=== PATIENT | male | born 1960 | race Caucasian/White ===

== ENCOUNTER 2017-03-28 06:05 | Inpatient (IN) | payer BC ==
[2017-03-20 17:13] VITALS: BMI 30.8
--- NOTE | 2017-03-27 11:49 | HP ---
Satellite [facility] - Chief Complaint Chief Complaint: left hip pain - Past Medical History Allergies/Adverse Reactions: Allergies Allergy/AdvReac Type Severity Reaction Status Date / Time No Known Allergies Allergy Verified 03/20/17 17:16 - Current Medications Current Medications: Home Medications Medication Instructions Recorded Cholecalciferol (Vitamin D3) 5,000 unit PO DAILY 03/20/17 [Vitamin D3] Diltiazem [Cardizem -] 30 mg PO QID 03/20/17 Gabapentin 600 mg PO TID 03/20/17 Lipase/Protease/Amylase [Creon Dr 1 each PO TID 03/20/17 36,000 Units Capsule] Losartan Potassium [Cozaar] 25 mg PO DAILY 03/20/17 Omeprazole 20 mg PO DAILY 03/20/17 Solifenacin Succinate [Vesicare -] 5 mg PO DAILY 03/20/17 Tamsulosin HCl [Flomax] 1 tab PO DAILY 03/20/17 Satellite Physical Exam - Physical Examination General Appearance: Well Nourished, Well Developed, Alert & Oriented x3 ENT: Clear Lung: Normal air movement Heart: Regular rate & rhythm Extremities: Other (left hip- + ttp, decr room, nvi xrays show severe left hip djd) Neurological: Intact, Alert, Oriented Satellite Impression/Plan - Impression/Plan Impression: left hip djd Operative Procedure: left laurita thr Date to be Performed: 03/28/17
[2017-03-28] MEDS ORDERED: CEFAZOLIN 2 GM in DEXTROSE 5%-WATER - 50 ML IVPB ONE (06:20)
[2017-03-28] MEDS ORDERED: TRANEXAMIC ACID 1000 MG/10 ML VIAL IVPUSH ONE (06:20)
[2017-03-28] MEDS ORDERED: GABAPENTIN 300 MG CAPSULE (FP) ONE (06:28)
[2017-03-28] MEDS ORDERED: CELECOXIB 200 MG CAPSULE ONE (06:28)
[2017-03-28] MEDS ORDERED: oxyCODONE HCL 10 MG SUSTAINED ACTING TABLET ONE (06:28)
[2017-03-28] MEDS: oxyCODONE HCL 10 MG SUSTAINED ACTING TABLET PO ONE (06:30)
[2017-03-28] MEDS: CELECOXIB 200 MG CAPSULE PO ONE (06:30)
[2017-03-28] MEDS: GABAPENTIN 300 MG CAPSULE (FP) PO ONE (06:30)
[2017-03-28] MEDS ORDERED: BUPIVACAINE HCL/PF (5 MG/ML) 30 ML VIAL IJ ONE (07:15)
[2017-03-28] MEDS ORDERED: MIDAZOLAM HCL 2 MG/2 ML SINGLE DOSE VIAL ONE (07:15)
[2017-03-28] MEDS ORDERED: DEXAMETHASONE SOD PHOSPHATE/PF 10 MG/ML SDV ONE (07:15)
[2017-03-28] MEDS ORDERED: EPINEPHrine/PF 1 MG/1 ML (1:1,000) AMPULE ONE (07:16)
[2017-03-28] MEDS ORDERED: VANCOMYCIN 1,000 MG VIAL (RESTRICTED TO ID ONLY) ONE (07:17)
[2017-03-28] MEDS ORDERED: ceFAZolin SODIUM 1 GM VIAL ONE (07:17)
[2017-03-28] MEDS ORDERED: SUCCINYLCHOLINE CHLORIDE 200 MG/10 ML VIAL ONE (07:23)
[2017-03-28] MEDS ORDERED: PROPOFOL 20 ML ONE ×4 (07:23)
[2017-03-28] MEDS ORDERED: BUPIVACAINE HCL/PF 0.5% (5MG/ML) 10 ML VIAL ONE (07:31)
[2017-03-28] MEDS ORDERED: TRANEXAMIC ACID 1000 MG/10 ML VIAL ONE (08:11)
[2017-03-28] MEDS ORDERED: ONDANSETRON 4 MG/2 ML VIAL IVPB PRN (09:48)
[2017-03-28] MEDS ORDERED: MAGNESIUM HYDROX 2400MG/30ML ORAL SUSPENSION 30 ML CUP PO PRN (09:48)
[2017-03-28] MEDS ORDERED: MAG HYDROX/AL HYDROX/SIMETH 30 ML UNIT-DOSE CUP PO PRN (09:48)
--- NOTE | 2017-03-28 09:54 | OP ---
Operative Note - Note: Operative Date: 03/28/17 (zeus) Pre-Operative Diagnosis: left hip djd Operation: left laurita thr Post-Operative Diagnosis: Same as Pre-op Surgeon: Casey Alfaro Rn Cardiac Cath: Roney Rahman) Anesthesiologist/VITREO RETINAL SURGEON: Lionel Salinas Anesthesia: Spinal, Local Specimens Removed: femoral head Estimated Blood Loss (mls): 200 Operative Report Dictated: Yes
[2017-03-28] MEDS ORDERED: ELECTROLYTE-148 SOLN 1,000 ML IV SCH (10:00)
--- NOTE | 2017-03-28 10:24 | SPEC ---
DATE OF OPERATION: 03/28/2017 PREOPERATIVE DIAGNOSIS: Degenerative Joint Disease, Left Hip POSTOPERATIVE DIAGNOSIS: Degenerative Joint disease, Left Hip PROCEDURE: Left Total Hip Replacement with Robotic Arm Navigation Assistance (Makoplasty) SURGEON: Dr. Casey Alfaro COAL CONVEYOR OPERATOR: Dr. Roney Rahman and RACHEL Morales ANESTHESIA: Spinal and regional CLOSURE: Edwin total hip system with a No. 8 Accolade II femoral stem, a 36 ceramic femoral head, a 56 titanium Press-Fit acetabulum with a polyethylene with a 10-degree lip, No. 1 Vicryl for fascia, 0 and 2-0 subcutaneous, 3-0 Monocryl subcuticular with skin glue for skin, and 4-0 undyed Vicryl for pin sites. ESTIMATED BLOOD LOSS: Less Than 100 mL. COMPLICATIONS: None. CONDITION: To recovery room in stable condition. DESCRIPTION OF OPERATIVE PROCEDURE: The patient was taken to the operating room. Spinal anesthesia as well as sciatic block was administered by the anesthesiologist. The IV Kefzol and TXA were administered prophylactically prior to the case. The patient was placed in the lateral decubitus position with all prominences well-padded. An EKG pad was secured to the inferior pole of the patella for limb length calculations intraoperatively. The left hip area was prepped and draped in the usual sterile fashion. A 12.0-15.0 cm curved longitudinal incision over the posterolateral aspect of the greater trochanter was made. Hemostasis was achieved with Bovie cautery. Sharp dissection was carried down to the level of the fascia. The fascia was opened the entire length of the incision, spreading the gluteus merry fibers in the direction of their origin. A Charnley retractor was placed in this layer, and care was taken to be far away from the sciatic nerve. The short external rotators were detached off the insertion of the greater trochanter and peeled off the capsule. A posterior capsulectomy was then performed. A checkpoint was malleted into the greater trochanter. Three small stab incisions were done on the iliac crest. Through these stab incisions, threaded guide pins were drilled into the iliac crest. These pins were fastened to the Navigation array. The check point on the greater trochanter, and the EKG pad on the inferior pole of the patella were used to measure preoperative limb length and offset. The hip was then dislocated. The hip was osteotomized at the appropriate level as directed by the preoperative template. Anterior and posterior retractors were placed around the acetabulum. Circumferential labrum was excised. A checkpoint was malleted into the acetabulum superiorly. The acetabulum was then registered with the Navigation device with multiple sites within the acetabulum and around the rim of the acetabulum. I t was then confirmed popping the blue bubbles, confirming ideal position and confirmation of adequate registration with the Navigation device. Using a 48 reamer, which was decided preoperatively on the preoperative template, the robotic arm was brought into the field and was used to ream the acetabulum down to the appropriate depth with the appropriate orientation and inversion applied. After reaming, a good hemispherical bleeding surface was encountered in the acetabulum. A SAAD shell of the appropriate size was then malleted into place achieving excellent fit. Confirmation of the appropriate orientation and inversion was confirmed using the probe, and assuring that the acetabular cup was placed in the ideal position as templated preoperatively. A real liner was then clipped into place with a 10 degree lip in the posterior-superior quadrant. Anterior and posterior osteophytes were removed using osteotome. Next, our attention was directed to the femur. The proximal femur was opened with a box chisel, rat-tail, anchovy and serial reamers. This was done until the appropriate reamer achieved good fit and fill of the proximal femur. A trial reduction with the appropriate neck and head, as again measured from our preoperative template, was performed. Limb lengths were confirmed both visually and using the Navigation device, again measuring the inferior pole of the patella and the checkpoint of the greater trochanter. This confirmed ideal position of the femoral component, lengths and offset. The trial components were removed. The real component was malleted into place. The head was cold-welded to the Charnley and the hip was reduced. Again, the hip was found to have equal limb lengths as described previously. The hip was also taken through a range of motion and found to be stable in external rotation and extension, was stable in marked flexion, stable in adduction and internal rotation, and had a positive hang test and negative telescoping. The hip was irrigated with copious amounts of irrigation. Hemostasis was achieved. Vancomycin powder was sprinkled into the joint. A second dose of TXA was administered. The fascia was closed with No. 1 Vicryl interrupted suture, 0 and 2-0 for subcutaneous, and 3-0 Monocryl subcuticular for skin with skin glue. This was followed by an Aquacel dressing. The patient was flipped into the supine position. Bilateral SCDs and an abduction pillow were applied. X-rays showed good position of the components. The patient was awakened from anesthesia and transferred to the recovery room in stable condition. COMPLICATIONS: None. ESTIMATED BLOOD LOSS: Less than 100 mL. Paulina [id number]
[2017-03-28] MEDS ORDERED: PROMETHAZINE HCL 25 MG/1 ML VIAL IVPUSH PRN (10:29)
[2017-03-28] MEDS ORDERED: ONDANSETRON 4 MG/2 ML VIAL IVPUSH PRN (10:56)
[2017-03-28] MEDS ORDERED: oxyCODONE HCL 5 MG TABLET PO PRN (10:57)
[2017-03-28] MEDS ORDERED: ACETAMINOPHEN 325 MG TABLET (FP) PO SCH (12:00)
[2017-03-28] MEDS ORDERED: PT OWN MED DRAWER 7, Y5N ONE ×4 (14:25→22:48)
[2017-03-28] MEDS: LIPASE/PROTEASE/AMYLASE 36,000 UNIT CAPSULE PO SCH ×2 (14:26→21:58)
[2017-03-28] MEDS: dilTIAZem HCL 30 MG TABLET (FP) PO SCH ×3 (14:26→21:56)
[2017-03-28] MEDS: CEFAZOLIN 2 GM/D5W 50 ML IVPB SCH ×2 (16:42→23:58)
[2017-03-28] MEDS: ACETAMINOPHEN 325 MG TABLET (FP) PO SCH ×2 (18:23→22:00)
[2017-03-28] MEDS ORDERED: REFRIGERATED ANITBIOTICS ONE (20:04)
[2017-03-28] MEDS: oxyCODONE HCL 5 MG TABLET PO PRN (21:55)
[2017-03-28] MEDS: oxyCODONE HCL 10 MG SUSTAINED ACTING TABLET PO SCH (21:55)
[2017-03-28] MEDS: SENNOSIDES/DOCUSATE COMBO (SENNA PLUS) TABLET (UD) PO SCH ×2 (21:56→22:00)
[2017-03-28] MEDS: TAMSULOSIN HCL 0.4 MG CAP.ER.24H (FP) PO SCH (21:57)
[2017-03-29] MEDS ORDERED: PT OWN MED DRAWER 7, Y5N ONE ×3 (05:31→21:56)
[2017-03-29] MEDS: ACETAMINOPHEN 325 MG TABLET (FP) PO SCH ×5 (05:35→23:37)
[2017-03-29] MEDS: oxyCODONE HCL 5 MG TABLET PO PRN ×4 (05:36→21:57)
[2017-03-29] MEDS: LIPASE/PROTEASE/AMYLASE 36,000 UNIT CAPSULE PO SCH ×3 (05:36→21:57)
--- NOTE | 2017-03-29 08:02 | PN ---
Progress Note (short form) - Note Progress Note: Ortho Pt seen and examined s/p left laurita thr pod #1 Selected Entries 03/29/17 06:20 Temperature 98.1 F Pulse Rate 79 Respiratory 18 Rate Blood Pressure 126/73 Laboratory Tests 03/29/17 07:00 WBC Pending Hgb Pending Hct Pending Plt Count Pending dressing c/d/i, calf soft, nt nvi a/p PT hip precautions dvt ppx pain control d/c home tomorrow if stable
[2017-03-29 08:07] LABS: MCH 30.8 pg (25.7-33.7); MCHC 33.9 g/dl (32.0-35.9); MEAN PLT VOLUME 9.9 fl (7.5-11.1); PLATELET COUNT 249 K/MM3 (134-434); RDW 12.8 % (11.9-15.9); WHITE BLOOD COUNT 17.6 K/mm3 (4.0-10.8)
[2017-03-29] MEDS: ASPIRIN 325 MG TABLET PO SCH (08:30)
[2017-03-29] MEDS: dilTIAZem HCL 30 MG TABLET (FP) PO SCH ×5 (09:12→21:57)
[2017-03-29] MEDS: PANTOPRAZOLE 40 MG TABLET (FP) PO SCH ×2 (09:16→12:43)
[2017-03-29] MEDS: LOSARTAN POTASSIUM 25 MG TABLET PO SCH ×2 (09:16→12:43)
[2017-03-29] MEDS: MULTIVITAMINS (DAILY MVI) TABLET (FP) PO SCH ×2 (09:16→12:43)
[2017-03-29] MEDS: SOLIFENACIN SUCCINATE 5 MG TAB (FP) PO SCH ×2 (09:17→12:43)
[2017-03-29] MEDS: oxyCODONE HCL 10 MG SUSTAINED ACTING TABLET PO SCH ×2 (09:18→21:58)
[2017-03-29] MEDS: SENNOSIDES/DOCUSATE COMBO (SENNA PLUS) TABLET (UD) PO SCH ×2 (10:00→21:58)
--- NOTE | 2017-03-29 10:36 | PN ---
Progress Note, Physician Chief Complaint: Pt. pain controlled, ambulating and voiding, no anesthesia complaints. - Current Medication List Current Medications: Active Medications Acetaminophen (Tylenol -) 650 mg PO Q6H ON LICENSE OF [facility] Stop: 03/31/17 11:59 Last Admin: 03/29/17 05:35 Dose: 650 mg Al Hydroxide/Mg Hydroxide (Mylanta Oral Suspension -) 30 ml PO Q4H PRN PRN Reason: DYSPEPSIA Aspirin (Asa -) 325 mg PO DAILY@0800 ON LICENSE OF [facility] Last Admin: 03/29/17 08:30 Dose: 325 mg Diltiazem HCl (Cardizem -) 30 mg PO QID ON LICENSE OF [facility] Last Admin: 03/29/17 09:15 Dose: 30 mg Fentanyl (Sublimaze Injection -) 50 mcg IVPUSH [id number] PRN PRN Reason: PAIN Stop: 03/31/17 10:30 Parenteral Electrolytes (Plasma-Lyte 148 -) 1,000 mls @ 125 mls/hr IV ASDIR ON LICENSE OF [facility] Losartan Potassium (Cozaar -) 25 mg PO DAILY ON LICENSE OF [facility] Last Admin: 03/29/17 09:16 Dose: 25 mg Magnesium Hydroxide (Milk Of Magnesia -) 30 ml PO PRN PRN PRN Reason: CONSTIPATION Multivitamins/Minerals/Vitamin C (Tab-A-Vit -) 1 tab PO DAILY ON LICENSE OF [facility] Last Admin: 03/29/17 09:16 Dose: 1 tab Ondansetron HCl (Zofran Injection) 4 mg IVPB Q6H PRN PRN Reason: NAUSEA Oxycodone HCl (Oxycontin -) 10 mg PO BID ON LICENSE OF [facility] Stop: 03/31/17 10:29 Last Admin: 03/29/17 09:18 Dose: 10 mg Oxycodone HCl (Roxicodone -) 5 mg PO Q3H PRN PRN Reason: PAIN LEVEL 1-5 Last Admin: 03/29/17 09:17 Dose: 5 mg Oxycodone HCl (Roxicodone -) 10 mg PO Q3H PRN PRN Reason: PAIN LEVEL 6-10 Last Admin: 03/28/17 14:32 Dose: 10 mg Pancrelipase (Creon Dr 36,000 Units Capsule) 1 cap PO TID ON LICENSE OF [facility] Last Admin: 03/29/17 05:36 Dose: 1 cap Pantoprazole Sodium (Protonix -) 40 mg PO DAILY ON LICENSE OF [facility] Last Admin: 03/29/17 09:16 Dose: 40 mg Senna/Docusate Sodium (Pericolace -) 2 tablet PO BID ON LICENSE OF [facility] Last Admin: 03/28/17 22:00 Dose: 2 tablet Solifenacin (Vesicare -) 5 mg PO DAILY ON LICENSE OF [facility] Last Admin: 03/29/17 09:17 Dose: 5 mg Tamsulosin HCl (Flomax -) 0.4 mg PO HS ON LICENSE OF [facility] Last Admin: 03/28/17 21:57 Dose: 0.4 mg - Objective Vital Signs: Vital Signs Temperature 98.1 F 03/29/17 06:20 Pulse Rate 79 03/29/17 06:20 Respiratory Rate 18 03/29/17 06:20 Blood Pressure 126/73 03/29/17 06:20 O2 Sat by Pulse Oximetry (%) 94 L 03/28/17 11:19 Constitutional: Yes: Well Nourished, No Distress, Calm Musculoskeletal: Yes: WNL Neurological: Yes: WNL, Alert, Oriented ...Motor Strength: WNL Labs: CBC, BMP 03/29/17 07:00 Assessment/Plan POD#1 s/p left total hip replacement under spinal. Doing well. D/C from anesthesia care.
[2017-03-29] MEDS: ELECTROLYTE-148 SOLN 1,000 ML IV SCH ×2 (11:18→12:44)
[2017-03-29] MEDS: oxyCODONE HCL 10 MG SUSTAINED ACTING TABLET PO ONE (12:42)
[2017-03-29] MEDS: CELECOXIB 200 MG CAPSULE PO ONE (12:42)
[2017-03-29] MEDS: GABAPENTIN 300 MG CAPSULE (FP) PO ONE (12:42)
[2017-03-29] MEDS: TAMSULOSIN HCL 0.4 MG CAP.ER.24H (FP) PO SCH (21:58)
[2017-03-30 06:42] VITALS: PULSE 89
[2017-03-30] MEDS: ACETAMINOPHEN 325 MG TABLET (FP) PO SCH ×2 (06:43→10:45)
[2017-03-30] MEDS: LIPASE/PROTEASE/AMYLASE 36,000 UNIT CAPSULE PO SCH (06:44)
[2017-03-30] MEDS: oxyCODONE HCL 5 MG TABLET PO PRN ×2 (06:44→08:08)
[2017-03-30] MEDS: ASPIRIN 325 MG TABLET PO SCH (08:07)
--- NOTE | 2017-03-30 08:24 | PN ---
Progress Note (short form) - Note Progress Note: Ortho Pt seen and examined s/p left laurita thr pod #2 Selected Entries 03/30/17 06:00 Temperature 98.9 F Pulse Rate 89 Respiratory 19 Rate Blood Pressure 102/73 Laboratory Tests 03/29/17 07:00 WBC 17.6 H D Hgb 13.9 Hct 41.0 Plt Count 249 dressing c/d/i, calf soft, nt nvi a/p PT hip precautions dvt ppx pain control d/c home today f/u in 1 week
--- NOTE | 2017-03-30 08:25 | DS ---
Physical Examination Vital Signs: Vital Signs Temperature 98.9 F 03/30/17 06:00 Pulse Rate 89 03/30/17 06:00 Respiratory Rate 19 03/30/17 06:00 Blood Pressure 102/73 03/30/17 06:00 O2 Sat by Pulse Oximetry (%) 93 L 03/30/17 06:00 Discharge Summary Reason For Visit: OSTEOARTHRITIS Procedures: Principal: s/p left laurita thr Hospital Course: admitted for elective left laurita thr, uneventful post-op, stable for d/c Condition: Good - Instructions Diet, Activity, Other Instructions: Post-op Instructions-Total Hip Replacement Call the office for a follow-up appointment in 1 week - [phone] Aspirin 325mg daily for 6 weeks. Pain medication was sent into your pharmacy. Apply Graduated Compression Stockings (TEDs) to both lower extremities- remove daily for hygiene ONLY Apply Sequential Compression Device (SCDs) to both Lower extremities remove for PT and hygiene ONLY Apply cold packs to affected area for 15 minutes every 2 hours. Physical Therapist will come to your home for the first 5 days. You will be set up with outpatient PT at your first post-operative visit. Patient may ambulate as tolerated-encourage self care (at least every 2-3 hours while awake) with walker or cane Maintain Aquacel (waterproof) dressing to operative wound (will be removed by surgeon at first office visit) Shower with Aquacel dressing in place-if Aquacel integrity compromised, remove and apply dry sterile dressing and notify Orthopedist. DO NOT SHOWER unless Orthopedists approves without Aquacel dressing CONTACT THE OFFICE FOR ANY CHANGE IN YOUR CONDITION (for example-fever greater than 102 degrees,excessive bleeding from operative site, purulent drainage, severe swelling or pain) GO TO THE EMERGENCY ROOM IF THERE IS A MEDICAL EMERGENCY Hip Precautions: * Keep a rolled towel under affected heel while in bed or chair (to keep knee in extension) * Dependent upon approach: * Posterior - do not cross legs; do not sit on low chairs or toilets. * If you have any questions, please do not hesitate to call the office - . Referrals: Roeny Rahman MD [Staff Physician] - Disposition: VNS/HOME HEALTH CARE - Home Medications Comprehensive Discharge Medication List: Ambulatory Orders Cholecalciferol (Vitamin D3) [Vitamin D3] 5,000 unit PO DAILY 03/20/17 Diltiazem [Cardizem -] 30 mg PO QID 03/20/17 Gabapentin 600 mg PO TID 03/20/17 Lipase/Protease/Amylase [Jamee Levi 36,000 Units Capsule] 1 each PO TID 03/20/17 Losartan Potassium [Cozaar] 25 mg PO DAILY 03/20/17 Omeprazole 20 mg PO DAILY 03/20/17 Solifenacin Succinate [Vesicare -] 5 mg PO DAILY 03/20/17 Tamsulosin HCl [Flomax] 1 tab PO HS 03/20/17 Aspirin [ASA -] 325 mg PO DAILY@0800 tablet 03/28/17 Oxycodone HCl/Acetaminophen [Percocet 5-325 mg Tablet -] 1 - 2 tab PO Q6H #50 tab MDD 8 03/28/17
[2017-03-30 09:12] VITALS: BP 116/58; TEMP 97.9
[2017-03-30] MEDS: LOSARTAN POTASSIUM 25 MG TABLET PO SCH (09:12)
[2017-03-30] MEDS: dilTIAZem HCL 30 MG TABLET (FP) PO SCH (09:12)
[2017-03-30] MEDS: MULTIVITAMINS (DAILY MVI) TABLET (FP) PO SCH (09:13)
[2017-03-30] MEDS: oxyCODONE HCL 10 MG SUSTAINED ACTING TABLET PO SCH (09:13)
[2017-03-30] MEDS: PANTOPRAZOLE 40 MG TABLET (FP) PO SCH (09:13)
[2017-03-30] MEDS: SOLIFENACIN SUCCINATE 5 MG TAB (FP) PO SCH (09:13)
[2017-03-30] MEDS: SENNOSIDES/DOCUSATE COMBO (SENNA PLUS) TABLET (UD) PO SCH (09:13)
[2017-03-30 09:33] LABS: MEAN PLT VOLUME 10.1 fl (7.5-11.1); PLATELET COUNT 231 K/MM3 (134-434)
[2017-03-30 09:36] LABS: MCH 31.2 pg (25.7-33.7); MCHC 33.9 g/dl (32.0-35.9); MEAN CELL VOLUME 92.1 fl (80-96); RDW 13.3 % (11.9-15.9); WHITE BLOOD COUNT 12.8 K/mm3 (4.0-10.0)
[2017-03-30] MEDS: ELECTROLYTE-148 SOLN 1,000 ML IV SCH (10:44)
--- NOTE | 2017-04-03 10:55 | PATH ---
Surgical Pathology Report Patient Name: LITZY GUTIÉRREZ Med. Rec. #: [id number] /Age/Gender: 1960 (Age: 57) / M Account: [id number] Location: [facility] MED-SURG Taken: 03/28/2017 Received: 03/29/2017 Reported: 04/03/2017 Physicians: Roney Rahman M.D. Specimen(s) Received LEFT FEMORAL HEAD Clinical History Left hip osteoarthritis Final Diagnosis FEMORAL HEAD, LEFT, TOTAL HIP REPLACEMENT: DEGENERATIVE JOINT DISEASE. Electronically Signed Theodora Singleton M.D. Gross Description Received in formalin, labeled "left femoral head," is a 5.3 x 5.2 x 4.6 cm. femoral head with a 1.3 cm in length portion of femoral neck attached. The margin of resection is smooth. There is a 5.0 cm in greatest dimension area of eburnation present. The remaining articular surface is graham-yellow and focally granular. The underlying trabecular bone is yellow and hard. A wine sales representative section is submitted in one cassette, following decalcification. 03/30/201703/30/2017
== END 2017-03-30 11:00 | disposition home health service (06) | DRG 470 ==
LOC: FM/S 06:05
PROVIDERS: ADMIT Orthopaedic Surgery; ATTEND Orthopaedic Surgery
PROC: 8E0W0CZ Robotic Assisted Procedure of Trunk Region, Open Approach (ICD-10-PCS; 2017-03-28)
PROC: 0SRB03A Replacement of Left Hip Joint with Ceramic Synthetic Substitute, Uncemented, Open Approach (ICD-10-PCS; principal; 2017-03-28 08:32)
DX: M16.12 Unilateral primary osteoarthritis, left hip (principal)
CPT/HCPCS: 36415; 73502-TC-LT; 85027; 88304-TC; 88311-TC; 94010; 94760; 97116-GP; 97162-GP

== ENCOUNTER 2018-05-30 06:14 | Inpatient (IN) | payer BC ==
--- NOTE | 2018-05-29 13:06 | HP ---
DATE OF ADMISSION: 05/30/2018 Patient to be admitted to the [facility] Operating Room tomorrow morning. HISTORY: This is a 58-year-old male admitted through the surgical service for reduction and repair of a recurrent ventral/incisional abdominal wall hernia. The patient has had the hernia for quite some time. He was initially thought to have intraabdominal pathology while living in [place], a couple of years back and underwent a mini laparotomy. No intraabdominal pathology was identified at that time. However, he was told that he had a hernia preoperatively and that his hernia was repaired when his mini laparotomy was closed. It is not certain at that time whether mesh was or was not placed. Nonetheless, the patient has gone on to develop an obvious recurrent/incisional abdominal wall hernia. He is quite symptomatic. He has decided at this juncture to move in the direction of definitive management. PAST MEDICAL HISTORY: Significant for atrial fibrillation, hypertension, hypercholesterolemia, and arthritis. PAST SURGICAL HISTORY: Significant for mini laparotomy and hernia repair of the abdominal wall in February 2016. He has also had hip replacement in March 2017. ALLERGIES: None known. REGULAR MEDICATIONS: Aspirin, atorvastatin, diltiazem, ezetimibe, gabapentin, losartan, Mesalamine, omeprazole, and VESIcare. SOCIAL HISTORY: Negative tobacco. The patient states that he did smoke rather regularly up until March of this year. Patient also states that he was a relatively heavy drinker in the past but has not had alcohol now for quite some time. FAMILY HISTORY: Father secondary to heart disease and underlying diabetes. Mother age 89, in good health. REVIEW OF SYSTEMS: Nil. PHYSICAL EXAMINATION: Abdomen: Patient examined in the erect and supine position, mildly recurrent hernia involving the central portion of the abdomen in the upper midline. It is intimately associated with the overlying scar from prior intervention. In the supine position, the hernia is partially but not entirely reducible. Patient does have a very large diastasis recti stemming from the xiphoid process to the umbilicus. IMPRESSION: Recurrent, complex, chronically incarcerated, ventral/incisional abdominal wall hernia. PLAN: Reduction and repair of chronic, recurrent, chronically incarcerated, ventral/incisional abdominal wall hernia with mesh and component separation. Indications, alternatives, possible complications reviewed. Consent obtained. Issues relating to mesh reviewed with patient. Patient seen preoperatively by Dr. Louis Jimenez. Please refer to those notes for those medical details. COOPER TAN M.D. GIO/[id number]
[2018-05-30] MEDS ORDERED: TAMSULOSIN HCL 0.4 MG CAP ONE (06:36)
[2018-05-30 06:57] VITALS: BMI 31.4
[2018-05-30] MEDS ORDERED: LIDOCAINE HCL/PF 2% SDV 5ML VIAL ONE (07:12)
[2018-05-30] MEDS ORDERED: ROCURONIUM BROMIDE 50 MG/5 ML VIAL ONE ×2 (07:12→08:25)
[2018-05-30] MEDS ORDERED: ONDANSETRON 4 MG/2 ML VIAL ONE (07:12)
[2018-05-30] MEDS ORDERED: DEXAMETHASONE SOD PHOSPHATE 4 MG/1 ML VIAL ONE (07:12)
[2018-05-30] MEDS ORDERED: fentaNYL CITRATE 250 MCG/5 ML VIAL ONE (07:12)
[2018-05-30] MEDS ORDERED: DEXAMETHASONE SOD PHOSPHATE/PF 10 MG/ML SDV ONE (07:28)
[2018-05-30] MEDS ORDERED: MIDAZOLAM HCL 2 MG/2 ML SINGLE DOSE VIAL ONE (07:28)
[2018-05-30] MEDS ORDERED: BUPIVACAINE HCL/PF (5 MG/ML) 30 ML VIAL IJ ONE (07:29)
[2018-05-30] MEDS ORDERED: ceFAZolin SODIUM 1 GM VIAL ONE (08:13)
[2018-05-30] MEDS ORDERED: ePHEDrine SULFATE 50 MG/1 ML AMPULE ONE (09:12)
[2018-05-30] MEDS ORDERED: ONDANSETRON 4 MG/2 ML VIAL IVPUSH PRN ×2 (09:23→11:24)
[2018-05-30] MEDS ORDERED: oxyCODONE HCL 5 MG TABLET PO PRN ×2 (09:23→14:35)
[2018-05-30] MEDS ORDERED: LACTATED RINGERS SOLUTION 1,000 ML IV SCH (09:30)
[2018-05-30] MEDS ORDERED: NEOSTIGMINE METHYLSULFATE 0.5 MG/ML - 10 ML MDV ONE (09:40)
[2018-05-30] MEDS ORDERED: GLYCOPYRROLATE 0.2 MG/1 ML VIAL ONE (09:40)
[2018-05-30] MEDS ORDERED: PROPOFOL 20 ML ONE (09:48)
--- NOTE | 2018-05-30 11:22 | OP ---
DATE OF OPERATION: 05/30/2018 PREOPERATIVE DIAGNOSIS: Recurrent complex chronically incarcerated ventral/incisional abdominal wall hernia. POSTOPERATIVE DIAGNOSIS: Recurrent complex chronically incarcerated ventral/incisional abdominal wall hernia. PROCEDURE: Open bilateral component separation repair of recurrent complex chronically incarcerated ventral/incisional abdominal wall hernia with mesh. OPERATING SURGEON: Ej Solis MD SOCIAL MEDIA SPECIALIST: Jack Suárez MD ANESTHESIA: Elana Retana MD (general) HISTORY: This is a 58-year-old man who presents for repair of a complex recurrent abdominal wall hernia. Indications, alternatives, and possible complications reviewed. Consent was obtained. DESCRIPTION OF PROCEDURE: With the patient in the supine position, under general anesthesia, the abdomen was prepped and draped in the usual sterile fashion using chlorhexidine. A midline incision was made in the preexisting scar beginning above the umbilicus and extending below the umbilicus. The subcutaneous tissues were . The hernia sac was easily encountered and cleaned to the level of the fascial ring. The sac was opened and found to contain incarcerated omentum. Lysis of adhesions ensued, and the omentum was freed from the hernia ring and undersurface of the anterior abdominal wall and reduced. First directing our attention to the right side, the right posterior rectus sheath was from the overlying rectus muscle fibers, creating the retrorectus space. This dissection was carried inferiorly, laterally, and superiorly ultimately arriving at the juncture of the oblique and transversus muscles. The oblique muscles were then from the underlying transversus muscle at that level. The retrorectus space dissection was carried further laterally into that plane, and again, the dissection was extended inferiorly, laterally, and superiorly. Now directing out attention to the left side, the left posterior rectus sheath was from the overlying left rectus muscle fibers. The dissection again was carried out inferiorly, laterally, and superiorly arriving at the junction of the oblique and transversus muscles. Again, the oblique musculature was from the underlying transversus musculature. The plan of dissection of the retrorectus space was carried into this space, and again, the dissection was further accomplished inferiorly, laterally, and superiorly. Ultimately, the posterior midline was reapproximated using a 2-0 V-Loc suture, and the abdomen was closed. A composite mesh was then fashioned at the table by using a piece of Versatex mesh measuring 30 x 30 cm in size. A similar slightly smaller piece of OviTex mesh was sutured to the Versatex mesh using interrupted 3-0 Vicryl sutures creating the composite mesh. After the mesh was soaked, it was placed in the retrorectus space with the OviTex side down and the Versatex side up. The mesh was fashioned and filled the space at dissection. Ultimately, the mesh was fixed to the overlying musculature using counter palpation and AbsorbaTack. The wound was irrigated, irrigant retrieved. Adequate hemostasis was ensured. The anterior rectus fascia was then approximated using 0 PDS sutures beginning at each end of the wound, with the suture tied at the wound midpoint, leaving the mesh entirely in the retrorectus sheath. The subcutaneous tissues were irrigated and adequate hemostasis ensured. The midline was closed using metallic clips. Prior to closure, a Ruben-Polanco drain was placed in the subcutaneous space which exited through a separate stab wound in the right lower quadrant where the drain was tacked to the skin using 2-0 silk sutures. COUNTS: Needle, sponge, and instrument counts were correct ESTIMATED BLOOD LOSS: Minimal. SPECIMEN: None. IMPLANT: Mesh. DRAIN: One MATTY. The procedure was terminated. Paulina FREED/[id number] cc: Paulina Oconnor M.D. MTDVinayak
[2018-05-30] MEDS ORDERED: morphine CARPU-JECT 10 MG/1 ML DISP.SYRIN IVPB PRN (11:24)
[2018-05-30] MEDS ORDERED: D5-1/2NS+20 MEQ KCL - 20 MEQ/1,000 ML INFUS.BAG IV SCH (11:30)
[2018-05-30] MEDS: GABAPENTIN 300 MG CAPSULE (FP) PO SCH ×2 (13:32→22:12)
[2018-05-30] MEDS ORDERED: PATIENT'S OWN MEDICATION (NON-FORMULARY) (Gabapentin [Gabapentin] 600 MG) PO SCH (14:00)
[2018-05-30] MEDS ORDERED: ATORVASTATIN CA 20 MG TABLET (FP) PO SCH (22:00)
[2018-05-30] MEDS ORDERED: SOLIFENACIN SUCCINATE 5 MG TAB (FP) PO SCH (22:00)
[2018-05-30] MEDS ORDERED: PATIENT'S OWN MEDICATION (NON-FORMULARY) (Mesalamine [Mesalamine] 1.2 GM) PO SCH (22:00)
[2018-05-30] MEDS ORDERED: ASPIRIN COATED 81 MG TABLET.EC PO SCH (22:00)
[2018-05-30] MEDS ORDERED: EZETIMIBE 10 MG TABLET (FP) PO SCH (22:00)
[2018-05-30] MEDS ORDERED: LOSARTAN POTASSIUM 25 MG TABLET PO SCH (22:00)
[2018-05-30] MEDS ORDERED: metoPROLOL SUCCINATE 25 MG TAB.SR.24H (FP) PO SCH (22:00)
[2018-05-30] MEDS: oxyCODONE HCL 5 MG TABLET PO PRN (23:44)
[2018-05-31] MEDS: GABAPENTIN 300 MG CAPSULE (FP) PO SCH (06:18)
[2018-05-31] MEDS: oxyCODONE HCL 5 MG TABLET PO PRN ×2 (06:18→10:31)
[2018-05-31 06:51] VITALS: BP 103/59; PULSE 61; TEMP 98.2
--- NOTE | 2018-05-31 08:38 | DS ---
DATE OF ADMISSION: 05/30/2018 DATE OF DISCHARGE: 05/31/2018 ADMITTING DIAGNOSIS: Complex incisional hernia with preexisting hypertension and atrial fibrillation. DISCHARGE DIAGNOSIS: Complex incisional hernia with preexisting hypertension and atrial fibrillation. BRIEF HISTORY: This is a 58-year-old male who presented to [facility] for surgical management of a complex incisional hernia. He underwent repair of this hernia with mesh utilizing component separation and myofascial release. That was done on May 30. Please reference Dr. Ej Sharpe operative note for further details. Postoperatively, he did well. He is being discharged home today, May 31. He is tolerating a liquid diet. He is ambulating. He is voiding. His pain is well controlled with oral narcotics. He will go home with a new prescription for Percocet. He will continue his usual home medications of aspirin, Lipitor, Cardizem, Neurontin, mesalamine, metoprolol, and Vesicare. He will go home with a Ruben-Polanco drain. He will follow with Dr. Solis next week to be evaluated for drain removal. He will only sponge bathe while the drain is in. He is okay to walk, okay to climb stairs. He will stay on a light diet until he is having bowel movements which can be expected to take up to 5 days. He will not lift anything more than 20 pounds, and he will likely require 2 to 4 weeks off from work. At the time of his discharge, he is afebrile, his heart rate is 61, his blood pressure is 103/59, and he is ambulating and voiding. DO BREANN PIEDRA/[id number]
--- NOTE | 2018-05-31 09:49 | PN ---
Progress Note, Physician Chief Complaint: s/p ventral hernia repair under general anesthesia post op day one. History of Present Illness: general anesthesia, oral analgesia for post op pain control - Current Medication List Current Medications: Active Medications Aspirin (Ecotrin -) 81 mg PO [facility] Last Admin: 05/30/18 22:12 Dose: Not Given Atorvastatin Calcium (Lipitor -) 20 mg PO [facility] Last Admin: 05/30/18 22:15 Dose: 20 mg Diltiazem HCl (Cardizem Cd -) 120 mg PO [facility] Last Admin: 05/30/18 22:15 Dose: 120 mg Ezetimibe (Zetia -) 10 mg PO [facility] Last Admin: 05/30/18 22:15 Dose: 10 mg Enoxaparin Sodium (Lovenox -) 40 mg SQ DAILY [facility] Gabapentin (Neurontin -) 600 mg PO TID [facility] Last Admin: 05/31/18 06:18 Dose: 600 mg Lactated Ringer's (Lactated Ringers Solution) 1,000 mls @ 125 mls/hr IV ASDIR [facility] Potassium Chloride/Dextrose/Sod Cl (D5-1/2ns+20 Meq Kcl -) 20 meq in 1,000 mls @ 100 mls/hr IV ASDIR [facility] Last Admin: 05/30/18 11:30 Dose: 100 mls/hr Losartan Potassium (Cozaar -) 25 mg PO [facility] Last Admin: 05/30/18 22:15 Dose: 25 mg Metoprolol Succinate (Toprol Xl -) 25 mg PO [facility] Last Admin: 05/30/18 22:13 Dose: Not Given Morphine Sulfate (Morphine Injection -) 8 mg IVPB Q3H PRN PRN Reason: PAIN LEVEL 7 - 10 Last Admin: 05/30/18 13:31 Dose: 8 mg Non-Formulary Medication (Mesalamine [Mesalamine]) 1.2 gm PO [facility] Ondansetron HCl (Zofran Injection) 4 mg IVPUSH Q6H PRN PRN Reason: NAUSEA Oxycodone HCl (Roxicodone -) 7.5 mg PO Q4H PRN PRN Reason: PAIN LEVEL 4 - 6 Last Admin: 05/31/18 06:18 Dose: 7.5 mg Oxycodone HCl (Roxicodone -) 5 mg PO Q3H PRN PRN Reason: PAIN LEVEL 1-3 Pantoprazole Sodium (Protonix Iv) 40 mg IVPUSH DAILY [facility] Solifenacin (Vesicare -) 5 mg PO HS [facility] Last Admin: 05/30/18 22:14 Dose: 5 mg - Objective Vital Signs: Vital Signs Temperature 98.2 F 05/31/18 06:50 Pulse Rate 61 05/31/18 06:50 Respiratory Rate 18 05/31/18 06:50 Blood Pressure 103/59 L 05/31/18 06:50 O2 Sat by Pulse Oximetry (%) 94 L 05/31/18 07:30 Constitutional: Yes: Well Nourished Cardiovascular: Yes: WNL Respiratory: Yes: WNL Gastrointestinal: Yes: WNL Assessment/Plan No adverse effects of anesthetic, pain controlled, tolerating liquids, no nausea or vomiting, dept of anesthesia will sign off care at this time
[2018-05-31] MEDS ORDERED: PANTOPRAZOLE SODIUM 40 MG VIAL IVPUSH SCH (10:00)
[2018-05-31] MEDS ORDERED: ENOXAPARIN NA (PORCINE) 40 MG/0.4 ML DISP.SYRIN SQ SCH (10:00)
== END 2018-05-31 11:00 | disposition home or self-care (01) | DRG 355 ==
LOC: FASU 06:14 → FM/S 11:24 → UNDOADMIN 12:36 → FM/S 12:36
PROVIDERS: ADMIT Surgery; ATTEND Surgery
PROC: 0WUF0JZ Supplement Abdominal Wall with Synthetic Substitute, Open Approach (ICD-10-PCS; principal; 2018-05-30 08:19)
DX: K43.0 Incisional hernia with obstruction, without gangrene (principal); I10 Essential (primary) hypertension; I48.91 Unspecified atrial fibrillation
CPT/HCPCS: 94760

== ENCOUNTER 2018-06-14 17:20 | Inpatient (IN) | payer BC ==
[2018-06-14] MEDS ORDERED: SODIUM CHLORIDE 1,000 ML IV STA (17:31)
[2018-06-14] MEDS ORDERED: morphine CARPU-JECT 4 MG/1 ML DISP.SYRIN IVPUSH ONE (17:31)
[2018-06-14] MEDS ORDERED: ONDANSETRON 4 MG/2 ML VIAL IVPUSH ONE (17:31)
[2018-06-14] MEDS ORDERED: ONDANSETRON 4 MG/2 ML VIAL ONE (17:47)
[2018-06-14] MEDS ORDERED: morphine SULFATE 4 MG/ML VIAL ONE (17:47)
[2018-06-14 17:54] LABS: URINE APPEARANCE Clear; URINE BILIRUBIN Negative (NEGATIVE); URINE COLOR Yellow; URINE GLUCOSE (UA) Negative (NEGATIVE); URINE KETONE 1+ (NEGATIVE); URINE LEUK ESTERASE TRACE (NEGATIVE); URINE NITRITE Negative (NEGATIVE); URINE PROTEIN Trace (NEGATIVE); URINE UROBILINOGEN 0.2 (0.2-1.0)
--- NOTE | 2018-06-14 18:05 | PDOC ---
History of Present Illness - General Chief Complaint: Pain Stated Complaint: LEFT ABD PAIN Time Seen by Provider: 06/14/18 17:22 History Source: Patient Exam Limitations: No Limitations - History of Present Illness Initial Comments: 06/14/18 18:00 Patient is a 58M with history of HTN, HLD, hernia with sbo and repair two weeks ago, [place] here today complaining of sudden onset of left lower quadrant abdominal pain. He endorses nausea, vomiting and subjective fevers. Last bowel movement was today. Denies diarrhea and constipation. Denies dysuria. Denies inflammatory changes around surgical scar. Past History - Past Medical History Allergies/Adverse Reactions: Allergies Allergy/AdvReac Type Severity Reaction Status Date / Time No Known Allergies Allergy Verified 06/14/18 17:38 Home Medications: Ambulatory Orders Cholecalciferol (Vitamin D3) [Vitamin D3] 5,000 unit PO HS 03/20/17 Omeprazole 20 mg PO HS 03/20/17 Solifenacin Succinate [Vesicare -] 5 mg PO HS 03/20/17 Aspirin [Ecotrin] 81 mg PO HS 05/21/18 Metoprolol Succinate 25 mg PO HS 05/21/18 Atorvastatin Calcium 20 mg PO HS 05/30/18 L.acidoph,Paracasei, B.lactis [Probiotic] 1 each PO TID 05/30/18 Mesalamine 1.2 gm PO HS 05/30/18 Diltiazem Cd [Cardizem Cd -] 120 mg PO HS cap.cd.24h 05/31/18 Ezetimibe [Zetia -] 10 mg PO HS tablet 05/31/18 Gabapentin [Neurontin -] 600 mg PO TID capsule 05/31/18 Losartan Potassium [Cozaar -] 25 mg PO HS tablet 05/31/18 Ibuprofen 800 mg PO ONCE 06/14/18 Vitamin B Complex [B Complex] 1 each PO HS 06/14/18 Anemia: No Asthma: No Cancer: No Cardiac Disorders: Yes (A-fib [id number] EXPLORATORY LAP/SILENT ND AFTER 2016) CVA: No COPD: No CHF: No Dementia: No Diabetes: No GI Disorders: Yes (IBS) Disorders: Yes (BPH WITH URGENCY) HTN: Yes Hypercholesterolemia: Yes Liver Disease: No Seizures: No Thyroid Disease: No - Surgical History Abdominal Surgery: Yes (UMBILICAL HERNIA/ EXPLORATORY LAP 2015 FOR ABDOMINAL PAIN, AF POST OP) Appendectomy: No Cardiac Surgery: No Cholecystectomy: No Lung Surgery: No Neurologic Surgery: No Orthopedic Surgery: Yes (LEFT ELBOW TENDON REPAIR 2013/LEFT THR 03/2017) - Suicide/Smoking/Psychosocial Hx Smoking History: Current every day smoker Have you smoked in the past 12 months: Yes Number of Cigarettes Smoked Daily: 15 Information on smoking cessation initiated: Yes 'Breaking Loose' booklet given: 06/14/18 Hx Alcohol Use: No Drug/Substance Use Hx: No Substance Use Type: None Hx Substance Use Treatment: No Review of Systems - Review of Systems Comments:: 06/14/18 18:04 GENERAL/CONSTITUTIONAL: +fever no chills. No weakness. HEAD, EYES, EARS, NOSE AND THROAT: No change in vision. No ear pain or discharge. No sore throat. CARDIOVASCULAR: No chest pain or shortness of breath RESPIRATORY: No cough, wheezing, or hemoptysis. GASTROINTESTINAL: +nausea, +vomiting, no diarrhea or constipation. GENITOURINARY: No dysuria, frequency, or change in urination. MUSCULOSKELETAL: No joint or muscle swelling or pain. No neck or back pain. SKIN: No rash NEUROLOGIC: No headache, vertigo, loss of consciousness, or change in strength/ sensation. ENDOCRINE: No increased thirst. No abnormal weight change HEMATOLOGIC/LYMPHATIC: No anemia, easy bleeding, or history of blood clots. ALLERGIC/IMMUNOLOGIC: No hives or skin allergy. *Physical Exam - Vital Signs Last Vital Signs Temp Pulse Resp BP Pulse Ox 97.5 F L 59 L 18 143/79 95 06/14/18 17:21 06/14/18 17:21 06/14/18 17:21 06/14/18 17:21 06/14/18 17:21 - Physical Exam Comments: 06/14/18 18:05 GENERAL: Awake, alert, and fully oriented, in no acute distress HEAD: No signs of trauma, normocephalic, atraumatic EYES: PERRLA, EOMI, sclera anicteric, conjunctiva clear ENT: Auricles normal inspection, hearing grossly normal, nares patent, oropharynx clear without exudates. Moist mucosa NECK: Normal ROM, supple, no lymphadenopathy, JVD, or masses LUNGS: No distress, speaks full sentences, clear to auscultation bilaterally HEART: Regular rate and rhythm, normal S1 and S2, no murmurs, rubs or gallops, peripheral pulses normal and equal bilaterally. ABDOMEN: Soft, +LLQ tenderness with reverse rosving's. No masses EXTREMITIES: Normal inspection, Normal range of motion, no edema. No clubbing or cyanosis. NEUROLOGICAL: Cranial nerves II through XII grossly intact. Normal speech, normal gait, no focal sensorimotor deficits SKIN: Warm, Dry, normal turgor, no rashes or lesions noted. ED Treatment Course - LABORATORY CBC & Chemistry Diagram: 06/14/18 17:59 06/14/18 17:59 - ADDITIONAL ORDERS Additional order review: Laboratory Results 06/14/18 17:50 Urine Color Yellow Urine Appearance Clear Urine pH 6.0 Ur Specific [place] 1.025 Urine Protein Trace Urine Glucose (UA) Negative Urine Ketones 1+ H Urine Blood Trace-intact H Urine Nitrite Negative Urine Bilirubin Negative Urine Urobilinogen 0.2 Ur Leukocyte Esterase Trace H - RADIOLOGY Radiology Studies Ordered: Category Date Time Status ABDOMEN & PELVIS CT WITH CONTR [CT] Stat CT Scan 06/14/18 17:32 Ordered Medical Decision Making - Medical Decision Making 06/14/18 18:05 Patient is 58M with history of CAD, HTN, HLD, SBO with ventral hernia with repair two weeks ago here today with LLQ pain. Vitals normal and stable. Vomiting witnessed in ED. DDx includes, but is not limited to: diverticulitis, sbo, hernia, nephrolithiasis, atypical ACS. Will evaluate with abdominal labs, EKG, trop, CT abd/pelvis. Will treat with fluids, zofran, morphine. EKG shows normal sinus rhythm with rate of 58. No st elevations/depressions. Left axis deviation. Normal intervals. No significant t wave abnormalities. No significant change from prior EKG. 06/14/18 18:55 CBC shows leukocytosis. CMP reassuing. Trop undetectable. UA shows hematuria. Signed out to Dr Lan pending CT. *DC/Admit/Observation/Transfer Diagnosis at time of Disposition: Abdominal pain - Discharge Dispostion Disposition: HOME Condition at time of disposition: Good Decision to Admit order: No - Referrals Referrals: Louis Jimenez MD [Primary Care Provider] - - Patient Instructions - Post Discharge Activity
[2018-06-14 18:13] LABS: BASO % 2.2 % (0-2.0); EOS % 0.3 % (0-4.5); HEMATOCRIT 43.2 % (35.4-49); HEMOGLOBIN 14.6 GM/dl (11.7-16.9); LYMPH % 10.9 % (8-40); MCH 31.7 pg (25.7-33.7); MCHC 33.7 g/dl (32.0-35.9); MONO % 2.6 % (3.8-10.2); PLATELET COUNT 366 K/MM3 (134-434); RBC 4.59 M/mm3 (4.00-5.60); RDW 13.4 % (11.9-15.9); WHITE BLOOD COUNT 13.6 K/mm3 (4.0-10.8)
--- NOTE | 2018-06-14 18:13 | PDOC ---
Attending Attestation - Resident Resident Name: Albaro Hitchcock - ED Attending Attestation I have performed the following: I have examined & evaluated the patient, The case was reviewed & discussed with the resident, I agree w/resident's findings & plan, Exceptions are as noted - HPI HPI: 06/14/18 18:11 58 M with h/o HTN, HLD, hernia with sbo s/p repair two weeks ago, [place] presenting with abdominal pain + vomiting since today. Pt states that he was doing well post-operatively until today. He notes that he was tolerating PO and having normal BMs. However, this afternoon pt began to have diffuse abdominal pain and bloating, and vomited twice. Denies F/C. Denies diarrhea. - Physicial Exam PE: 06/14/18 18:12 "GENERAL: Awake, alert, and fully oriented, in no acute distress. HEAD: No signs of trauma EYES: PERRLA, EOMI, sclera anicteric, conjunctiva clear ENT: Auricles normal inspection, hearing grossly normal, nares patent, oropharynx clear without exudates. Moist mucosa NECK: Nontender, no stepoffs, Normal ROM, supple, no lymphadenopathy, JVD, or masses LUNGS: Breath sounds equal, clear to auscultation bilaterally. No wheezes, and no crackles HEART: Regular rate and rhythm, normal S1 and S2, no murmurs, rubs or gallops ABDOMEN: + mild distention, diffusely TTP EXTREMITIES: Normal range of motion, no edema. No clubbing or cyanosis. No cords, erythema, or tenderness NEUROLOGICAL: Cranial nerves II through XII intact. 5/5 strength and sensation in all extremities, Normal speech, normal gait, normal cerebellar function SKIN: Warm, Dry, normal turgor, no rashes or lesions noted. - Medical Decision Making 06/14/18 18:12 58 M with diffuse abdominal pain, distention, and vomiting. Concerning for possible SBO. - Labs - CTAP - IVF, morphine, zofran 06/14/18 19:29 Pt signed out to oncoming attending, pending labs, CT, and re-evaluation.
[2018-06-14 18:14] LABS: URINE BACTERIA 1+ /hpf (NEGATIVE)
[2018-06-14 18:19] LABS: ALBUMIN 3.4 g/dl (3.5-5.0); ALK PHOS 66 U/L (32-92); ANION GAP 8 MMOL/L (8-16); BILIRUBIN,TOTAL 1.3 mg/dl (0.2-1.0); BLOOD UREA NITROGEN 11 mg/dl (7-18); CALCIUM 8.6 mg/dl (8.4-10.2); CHLORIDE 106 mmol/L (98-107); CO2 23 mmol/L (22-28); GLUCOSE,RANDOM 112 mg/dl (74-106); SGOT/AST 30 U/L (10-42); SGPT/ALT 18 U/L (10-40); SODIUM 137 mmol/L (136-145); TOT PROT 6.8 g/dl (6.4-8.3)
[2018-06-14 18:20] LABS: POTASSIUM 4.9 mmol/L (3.5-5.1)
[2018-06-14 18:59] LABS: LIPASE 54 U/L (73-393)
[2018-06-14] MEDS ORDERED: HYDROmorphone HCL CARPU-JECT 1 MG/1 ML DISP.SYRIN IVPUSH ONE (22:37)
--- NOTE | 2018-06-14 22:49 | PDOC ---
*Physical Exam - Vital Signs Last Vital Signs Temp Pulse Resp BP Pulse Ox 97.5 F L 57 L 17 136/75 94 L 06/14/18 17:21 06/14/18 19:39 06/14/18 19:39 06/14/18 19:39 06/14/18 19:39 <Nany Chance - Last Filed: 06/14/18 23:54> - Vital Signs Last Vital Signs Temp Pulse Resp BP Pulse Ox 97.5 F L 57 L 17 136/75 94 L 06/14/18 17:21 06/14/18 19:39 06/14/18 19:39 06/14/18 19:39 06/14/18 19:39 <Ilia Lan - Last Filed: 06/15/18 00:04> ED Treatment Course - LABORATORY CBC & Chemistry Diagram: 06/14/18 17:59 06/14/18 17:59 - ADDITIONAL ORDERS Additional order review: Laboratory Results 06/14/18 06/14/18 06/14/18 17:59 17:59 17:50 Sodium 137 Potassium 4.9 D Chloride 106 Carbon Dioxide 23 Anion Gap 8 BUN 11 Creatinine 1.0 Creat Clearance w eGFR > 60 Random Glucose 112 H Calcium 8.6 Total Bilirubin 1.3 H AST 30 D ALT 18 Alkaline Phosphatase 66 Troponin I < 0.03 Total Protein 6.8 Albumin 3.4 L Lipase 54 L Urine Color Yellow Urine Appearance Clear Urine pH 6.0 Ur Specific [place] 1.025 Urine Protein Trace Urine Glucose (UA) Negative Urine Ketones 1+ H Urine Blood Trace-intact H Urine Nitrite Negative Urine Bilirubin Negative Urine Urobilinogen 0.2 Ur Leukocyte Esterase Trace H Urine RBC 10-20 Urine WBC 2-5 Urine Bacteria 1+ 06/14/18 17:59 RBC 4.59 MCV 94.0 MCHC 33.7 RDW 13.4 MPV 9.0 Neutrophils % 84.0 H Lymphocytes % 10.9 Monocytes % 2.6 L Eosinophils % 0.3 Basophils % 2.2 H D - Medications Given in the ED: ED Medications Discontinued Medications Generic Name Dose Route Start Last Admin Trade Name Freq PRN Reason Stop Dose Admin Sodium Chloride 1,000 mls @ 1,000 mls/hr 06/14/18 17:31 06/14/18 18:11 Normal Saline - IV 06/14/18 18:30 1,000 mls/hr ASDIR STA Administration Morphine Sulfate 4 mg 06/14/18 17:31 06/14/18 18:12 Morphine Injection - IVPUSH 06/14/18 17:32 4 mg ONCE ONE Administration Ondansetron HCl 4 mg 06/14/18 17:31 06/14/18 18:11 Zofran Injection IVPUSH 06/14/18 17:32 4 mg ONCE ONE Administration <Nany Chance - Last Filed: 06/14/18 23:54> - LABORATORY CBC & Chemistry Diagram: 06/14/18 17:59 06/14/18 17:59 - ADDITIONAL ORDERS Additional order review: Laboratory Results 06/14/18 06/14/18 06/14/18 17:59 17:59 17:50 Sodium 137 Potassium 4.9 D Chloride 106 Carbon Dioxide 23 Anion Gap 8 BUN 11 Creatinine 1.0 Creat Clearance w eGFR > 60 Random Glucose 112 H Calcium 8.6 Total Bilirubin 1.3 H AST 30 D ALT 18 Alkaline Phosphatase 66 Troponin I < 0.03 Total Protein 6.8 Albumin 3.4 L Lipase 54 L Urine Color Yellow Urine Appearance Clear Urine pH 6.0 Ur Specific [place] 1.025 Urine Protein Trace Urine Glucose (UA) Negative Urine Ketones 1+ H Urine Blood Trace-intact H Urine Nitrite Negative Urine Bilirubin Negative Urine Urobilinogen 0.2 Ur Leukocyte Esterase Trace H Urine RBC 10-20 Urine WBC 2-5 Urine Bacteria 1+ 06/14/18 17:59 RBC 4.59 MCV 94.0 MCHC 33.7 RDW 13.4 MPV 9.0 Neutrophils % 84.0 H Lymphocytes % 10.9 Monocytes % 2.6 L Eosinophils % 0.3 Basophils % 2.2 H D - Medications Given in the ED: ED Medications Discontinued Medications Generic Name Dose Route Start Last Admin Trade Name Freq PRN Reason Stop Dose Admin Sodium Chloride 1,000 mls @ 1,000 mls/hr 06/14/18 17:31 06/14/18 18:11 Normal Saline - IV 06/14/18 18:30 1,000 mls/hr ASDIR STA Administration Morphine Sulfate 4 mg 06/14/18 17:31 06/14/18 18:12 Morphine Injection - IVPUSH 06/14/18 17:32 4 mg ONCE ONE Administration Ondansetron HCl 4 mg 06/14/18 17:31 06/14/18 18:11 Zofran Injection IVPUSH 06/14/18 17:32 4 mg ONCE ONE Administration <Ilia Lan - Last Filed: 06/15/18 00:04> Medical Decision Making - Medical Decision Making 06/14/18 22:[address] Jimenez for admission, spoke with the service, waiting for a call back from the on-call doctor Dr. Nobles. 06/14/18 22:[address] Nobles. Per Dr. Nobles's request, patient will be admitted under the hospitalist. <Nany Chance - Last Filed: 06/14/18 23:54> - Medical Decision Making Case d/w Dr. Eldridge of Surgery 06/15/18 00:04 will admit for thromboembolic flores and analgesia <Ilia Lan - Last Filed: 06/15/18 00:04> *DC/Admit/Observation/Transfer <Nany Chance - Last Filed: 06/14/18 23:54> - Discharge Dispostion Decision to Admit order: Yes <Ilia Lan - Last Filed: 06/15/18 00:04> Diagnosis at time of Disposition: Splenic infarct - Discharge Dispostion Condition at time of disposition: Fair
[2018-06-14] MEDS ORDERED: HYDROmorphone HCL CARPU-JECT 1 MG/1 ML DISP.SYRIN ONE (22:50)
[2018-06-15] MEDS ORDERED: DEXTROSE 5%-0.45% SALINE 1,000 ML IV SCH (00:15)
[2018-06-15] MEDS ORDERED: morphine SULFATE 4 MG/ML VIAL IVPUSH PRN (00:15)
--- NOTE | 2018-06-15 00:20 | HP ---
CHIEF COMPLAINT: LLQ Pain PCP: Dr. Jimenez HISTORY OF PRESENT ILLNESS: This is a 58 y/o man with a PMHx of: HTN, HLD, Afib 2016 (on Asa), Tobacco Smoker, SBO, s/p Hernia repair x 2 weeks. Who presents to the ED with sudden onset of sharp constant pain to his LLQ. Patient reports having one episode of NBNB emesis. Patient denies fever, chills, cough, dizziness, SOB, CP, diarrhea, constipation, dysuria. Patient denies any falls, trauma or heavy lifting. ER course was notable for: (1) CTAP- Acute infarction 30% spleen (2) WBC 13.6 (3) Trop < 0.03 Recent Travel: None PAST MEDICAL HISTORY: See HPI PAST SURGICAL HISTORY: Hernia Repair 05/2018 L- Hip replacement 2016 Social History: SmokinPPD x 45 years Alcohol: Former Drugs: Denies Retired Family History: Father: Cardiac, Mother: Healthy, alive 90's Brother: Cardiac, PM Allergies No Known Allergies Allergy (Verified 06/14/18 17:38) HOME MEDICATIONS: Home Medications Medication Instructions Recorded Cholecalciferol (Vitamin D3) 5,000 unit PO HS 03/20/17 [Vitamin D3] Omeprazole 20 mg PO HS 03/20/17 Solifenacin Succinate [Vesicare -] 5 mg PO HS 03/20/17 Aspirin [Ecotrin] 81 mg PO HS 05/21/18 Metoprolol Succinate 25 mg PO HS 05/21/18 Atorvastatin Calcium 20 mg PO HS 05/30/18 L.acidoph,Paracasei, B.lactis 1 each PO TID 05/30/18 [Probiotic] Mesalamine 1.2 gm PO HS 05/30/18 Diltiazem Cd [Cardizem Cd -] 120 mg PO HS cap.cd.24h 05/31/18 Ezetimibe [Zetia -] 10 mg PO HS tablet 05/31/18 Gabapentin [Neurontin -] 600 mg PO TID capsule 05/31/18 Losartan Potassium [Cozaar -] 25 mg PO HS tablet 05/31/18 Ibuprofen 800 mg PO ONCE 06/14/18 Vitamin B Complex [B Complex] 1 each PO HS 06/14/18 REVIEW OF SYSTEMS CONSTITUTIONAL: Absent: fever, chills, diaphoresis, generalized weakness, malaise, loss of appetite, weight change HEENT: Absent: rhinorrhea, nasal congestion, throat pain, throat swelling, difficulty swallowing, mouth swelling, ear pain, eye pain, visual changes CARDIOVASCULAR: Absent: chest pain, syncope, palpitations, irregular heart rate, lightheadedness , peripheral edema RESPIRATORY: Absent: cough, shortness of breath, dyspnea with exertion, orthopnea, wheezing, stridor, hemoptysis GASTROINTESTINAL:abdominal pain, abdominal distension Absent: nausea, vomiting, diarrhea, constipation, melena, hematochezia GENITOURINARY: Absent: dysuria, frequency, urgency, hesitancy, hematuria, flank pain, genital pain MUSCULOSKELETAL: Absent: myalgia, arthralgia, joint swelling, back pain, neck pain SKIN: Absent: rash, itching, pallor HEMATOLOGIC/IMMUNOLOGIC: Absent: easy bleeding, easy bruising, lymphadenopathy, frequent infections ENDOCRINE: Absent: unexplained weight gain, unexplained weight loss, heat intolerance, cold intolerance NEUROLOGIC: Absent: headache, focal weakness or paresthesias, dizziness, unsteady gait, seizure, mental status changes, bladder or bowel incontinence PSYCHIATRIC: Absent: anxiety, depression, suicidal or homicidal ideation, hallucinations. PHYSICAL EXAMINATION Vital Signs - 24 hr 06/14/18 06/14/18 06/14/18 17:21 19:39 22:45 Temperature 97.5 F L 98.5 F Pulse Rate 59 L Pulse Rate [ 57 L 64 Right Radial] Respiratory 18 17 Rate Blood Pressure 143/79 Blood Pressure 136/75 124/69 [Right Arm] O2 Sat by Pulse 95 94 L 94 L Oximetry (%) GENERAL: Awake, alert, and fully oriented, in no acute distress. HEAD: Normal with no signs of trauma. EYES: Pupils equal, round and reactive to light, extraocular movements intact, sclera anicteric, conjunctiva clear. No lid lag. EARS, NOSE, THROAT: Ears normal, nares patent, oropharynx clear without exudates. Dry mucous membranes. NECK: Normal range of motion, supple without lymphadenopathy, JVD, or masses. LUNGS: Breath sounds equal, clear to auscultation bilaterally. No wheezes, and no crackles. No accessory muscle use. HEART: Regular rate and rhythm, normal S1 and S2 without murmur, rub or gallop. ABDOMEN: Soft, surgical incisions healed, tenderness to LUQ-LMQ, distended, hypoactive bowel sounds. no guarding, no rebound, no masses. No hepatomegaly or splenomegaly. MUSCULOSKELETAL: Normal range of motion at all joints. No bony deformities or tenderness. No CVA tenderness. UPPER EXTREMITIES: 2+ pulses, warm, well-perfused. No cyanosis. No clubbing. No peripheral edema. LOWER EXTREMITIES: 2+ pulses, warm, well-perfused. No calf tenderness. No peripheral edema. NEUROLOGICAL: Cranial nerves II-XII intact. Normal speech. gait not observed. PSYCHIATRIC: Cooperative. Good eye contact. Appropriate mood and affect. SKIN: Warm, dry, normal turgor, no rashes or lesions noted, normal capillary refill. Laboratory Results - last 24 hr 06/14/18 06/14/18 06/14/18 17:50 17:59 17:59 WBC 13.6 H RBC 4.59 Hgb 14.6 Hct 43.2 MCV 94.0 MCH 31.7 MCHC 33.7 RDW 13.4 Plt Count 366 D MPV 9.0 Absolute Neuts (auto) 11.4 Neutrophils % 84.0 H Lymphocytes % 10.9 Monocytes % 2.6 L Eosinophils % 0.3 Basophils % 2.2 H D Sodium 137 Potassium 4.9 D Chloride 106 Carbon Dioxide 23 Anion Gap 8 BUN 11 Creatinine 1.0 Creat Clearance w eGFR > 60 Random Glucose 112 H Calcium 8.6 Total Bilirubin 1.3 H AST 30 D ALT 18 Alkaline Phosphatase 66 Troponin I Total Protein 6.8 Albumin 3.4 L Lipase 54 L Urine Color Yellow Urine Appearance Clear Urine pH 6.0 Ur Specific [place] 1.025 Urine Protein Trace Urine Glucose (UA) Negative Urine Ketones 1+ H Urine Blood Trace-intact H Urine Nitrite Negative Urine Bilirubin Negative Urine Urobilinogen 0.2 Ur Leukocyte Esterase Trace H Urine RBC 10-20 Urine WBC 2-5 Urine Bacteria 1+ 06/14/18 17:59 WBC RBC Hgb Hct MCV MCH MCHC RDW Plt Count MPV Absolute Neuts (auto) Neutrophils % Lymphocytes % Monocytes % Eosinophils % Basophils % Sodium Potassium Chloride Carbon Dioxide Anion Gap BUN Creatinine Creat Clearance w eGFR Random Glucose Calcium Total Bilirubin AST ALT Alkaline Phosphatase Troponin I < 0.03 Total Protein Albumin Lipase Urine Color Urine Appearance Urine pH Ur Specific [place] Urine Protein Urine Glucose (UA) Urine Ketones Urine Blood Urine Nitrite Urine Bilirubin Urine Urobilinogen Ur Leukocyte Esterase Urine RBC Urine WBC Urine Bacteria ASSESSMENT/PLAN: This is a 58 y/o man with a past medical history of SBO with Ventral Repair 2 weeks ago, HTN, HLD. Admitted for Splenic Infarct, Abdominal Pain for further evaluation of their emergent condition. FEN D51/2NS@75ml/hr Replete lytes prn NPO DVT ppx OOB SCDs Consider Ac if LOS > 48 hrs Code Status: Full Code Dispo: Tele Observation Problem List - Problem (1) Splenic infarct Assessment/Plan: s/p Hernia Repair 2 weeks ago CTAP- Acute Infarction 30% spleen Advised ED attending to speak with pt's covering surgeon regarding the splenic infarct, per Dr. Lan,Dr. Eldridge aware Continue IVFs Pain Management, Morphine, NSAIDs Monitor vitals LDH and lactic acid-pending Repeat CBC, BMP, PTT in am Code(s): D73.5 - INFARCTION OF SPLEEN (2) A-fib Assessment/Plan: on Asa [id number] 1 EKG reviewed- SB, incomplete RBBB [id number] Consider cardiology consult for AC recommendations 2/2 Splenic Infarct Code(s): I48.91 - UNSPECIFIED ATRIAL FIBRILLATION (3) HTN (hypertension) Assessment/Plan: stable monitor BP continue home meds monitor renal function Code(s): I10 - ESSENTIAL (PRIMARY) HYPERTENSION (4) HLD (hyperlipidemia) Assessment/Plan: continue home meds Code(s): E78.5 - HYPERLIPIDEMIA, UNSPECIFIED Visit type - Emergency Visit Emergency Visit: Yes ED Registration Date: 06/14/18 Care time: The patient presented to the Emergency Department on the above date and was hospitalized for further evaluation of their emergent condition. - New Patient This patient is new to me today: Yes Date on this admission: 06/15/18 - Critical Care Critical Care patient: No
[2018-06-15 00:34] VITALS: BMI 31.5
[2018-06-15] MEDS ORDERED: FAMOTIDINE 20 MG/50 ML IVPB 20 MG/50 ML MG IVPB ONE (03:00)
[2018-06-15 07:52] LABS: BASO % 0.3 % (0-2.0); EOS % 1.5 % (0-4.5); HEMATOCRIT 37.2 % (35.4-49); HEMOGLOBIN 12.5 GM/dl (11.7-16.9); LYMPH % 14.5 % (8-40); MCH 31.9 pg (25.7-33.7); MCHC 33.7 g/dl (32.0-35.9); MEAN CELL VOLUME 94.7 fl (80-96); MONO % 6.8 % (3.8-10.2); NEUT % 76.9 % (42.8-82.8); PLATELET COUNT 295 K/MM3 (134-434); RBC 3.93 M/mm3 (4.00-5.60); RDW 13.3 % (11.9-15.9); WHITE BLOOD COUNT 12.9 K/mm3 (4.0-10.8)
[2018-06-15 08:42] LABS: ANION GAP 7 MMOL/L (8-16); BLOOD UREA NITROGEN 6 mg/dl (7-18); CALCIUM 8.3 mg/dl (8.4-10.2); CHLORIDE 107 mmol/L (98-107); CO2 24 mmol/L (22-28); CREATININE 0.8 mg/dl (0.6-1.3); GLUCOSE,RANDOM 98 mg/dl (74-106); POTASSIUM 3.4 mmol/L (3.5-5.1); SODIUM 138 mmol/L (136-145)
--- NOTE | 2018-06-15 08:52 | PN ---
Physical Exam: SUBJECTIVE: Patient seen and examined, reports some improvement in abdominal pain, does report nausea, denies any chest pain or shortness of breath. OBJECTIVE: patient is a a 58 y/o man with a PMHx of: HTN, HLD, Afib 2016 (no ac), Tobacco Smoker, SBO, s/p Hernia repair 05/31/18. Vital Signs Period Temp Pulse Resp BP Sys/Berg Pulse Ox Last 24 Hr 97.5 F-99.2 F 57-64 17-18 124-143/62-79 93-95 GENERAL: The patient is awake, alert, and fully oriented, in no acute distress. HEAD: Normal with no signs of trauma. EYES: PERRL, extraocular movements intact, sclera anicteric, conjunctiva clear. No ptosis. ENT: Ears normal, nares patent, oropharynx clear without exudates, moist mucous membranes. NECK: Trachea midline, full range of motion, supple. LUNGS: Breath sounds equal, clear to auscultation bilaterally, no wheezes, no crackles, no accessory muscle use. HEART: Regular rate and rhythm, S1, S2 without murmur, rub or gallop. ABDOMEN: Soft, obese, surgical site noted to lower abdomen well approximated, no erythema or tenderness, nondistended, normoactive bowel sounds, no guarding, no rebound, no hepatosplenomegaly, no masses. EXTREMITIES: 2+ pulses, warm, well-perfused, no edema. NEUROLOGICAL: Cranial nerves II through XII grossly intact. Normal speech, gait not observed. PSYCH: Normal mood, normal affect. SKIN: Warm, dry, normal turgor, no rashes or lesions noted Laboratory Results - last 24 hr 06/14/18 06/14/18 06/14/18 17:50 17:59 17:59 WBC 13.6 H RBC 4.59 Hgb 14.6 Hct 43.2 MCV 94.0 MCH 31.7 MCHC 33.7 RDW 13.4 Plt Count 366 D MPV 9.0 Absolute Neuts (auto) 11.4 Neutrophils % 84.0 H Lymphocytes % 10.9 Monocytes % 2.6 L Eosinophils % 0.3 Basophils % 2.2 H D Sodium 137 Potassium 4.9 D Chloride 106 Carbon Dioxide 23 Anion Gap 8 BUN 11 Creatinine 1.0 Creat Clearance w eGFR > 60 Random Glucose 112 H Lactic Acid Calcium 8.6 Total Bilirubin 1.3 H AST 30 D ALT 18 Alkaline Phosphatase 66 LD Total Troponin I Total Protein 6.8 Albumin 3.4 L Lipase 54 L Urine Color Yellow Urine Appearance Clear Urine pH 6.0 Ur Specific Nixon 1.025 Urine Protein Trace Urine Glucose (UA) Negative Urine Ketones 1+ H Urine Blood Trace-intact H Urine Nitrite Negative Urine Bilirubin Negative Urine Urobilinogen 0.2 Ur Leukocyte Esterase Trace H Urine RBC 10-20 Urine WBC 2-5 Urine Bacteria 1+ 06/14/18 06/15/18 06/15/18 17:59 01:00 01:00 WBC RBC Hgb Hct MCV MCH MCHC RDW Plt Count MPV Absolute Neuts (auto) Neutrophils % Lymphocytes % Monocytes % Eosinophils % Basophils % Sodium Potassium Chloride Carbon Dioxide Anion Gap BUN Creatinine Creat Clearance w eGFR Random Glucose Lactic Acid 1.0 Calcium Total Bilirubin AST ALT Alkaline Phosphatase LD Total 312 H Troponin I < 0.03 Total Protein Albumin Lipase Urine Color Urine Appearance Urine pH Ur Specific Nixon Urine Protein Urine Glucose (UA) Urine Ketones Urine Blood Urine Nitrite Urine Bilirubin Urine Urobilinogen Ur Leukocyte Esterase Urine RBC Urine WBC Urine Bacteria 06/15/18 06/15/18 07:36 07:36 WBC 12.9 H RBC 3.93 L Hgb 12.5 Hct 37.2 MCV 94.7 MCH 31.9 MCHC 33.7 RDW 13.3 Plt Count 295 MPV 9.0 Absolute Neuts (auto) 9.9 Neutrophils % 76.9 Lymphocytes % 14.5 D Monocytes % 6.8 D Eosinophils % 1.5 D Basophils % 0.3 Sodium 138 Potassium 3.4 L D Chloride 107 Carbon Dioxide 24 Anion Gap 7 L BUN 6 L Creatinine 0.8 Creat Clearance w eGFR > 60 Random Glucose 98 Lactic Acid Calcium 8.3 L Total Bilirubin AST ALT Alkaline Phosphatase LD Total Troponin I Total Protein Albumin Lipase Urine Color Urine Appearance Urine pH Ur Specific Nixon Urine Protein Urine Glucose (UA) Urine Ketones Urine Blood Urine Nitrite Urine Bilirubin Urine Urobilinogen Ur Leukocyte Esterase Urine RBC Urine WBC Urine Bacteria Active Medications Generic Name Dose Route Start Last Admin Trade Name Freq PRN Reason Stop Dose Admin Dextrose/Sodium Chloride 1,000 mls @ 75 mls/hr 06/15/18 00:15 06/15/18 00:23 D5-1/2ns - IV 75 mls/hr ASDIR HITESH Administration Morphine Sulfate 4 mg 06/15/18 00:15 Morphine Sulfate IVPUSH Q6H PRN PAIN LEVEL 7 - [address] abdomen and pelvis with contrast: acute spleenic infarct, 1.7 x 1.1 cm left renal hypodense focus unchanged from last study [facility] 2004 1.7 cm left adrenal nodule unchanged from prior CAT scan 2004 ASSESSMENT/PLAN: 1) GI spleenic infarct - CT scan of abdomen and pelvis stressed at length with surgeon Dr. Eldridge ( covering for Dr Solis), no emergent surgical intervention at this time patient can resume regular diet - prn pain medications - will require outpatient follow up with Dr Solis 2) cardiology paroxsysmal afib -reports he was diagnosed with paroxysmal A. fib in 2016[place] patient is not on any anticoagulation. In addition patient is not under the care of a private precision aircraft systems assembler -a copy of pre-operative (lexiscan) stress test completed on 05/03/18 that was ordered by PCP (Tony), Moderate-sized inferior infarct with mild linda-infarct ischemia, EF 71% - patient remains in normal sinus rhythm, will restart home medications Cardizem and metoprolol, patient denies any past history of congestive heart failure - appreciated input of precision aircraft systems assembler hypertension - b/p at goal, continue home dose, losartan HLD - continue lipitor - pending lipid panel in am 3) gu overactive bladder - will continue vesicare acute uti - + leukocytes noted on urinalysis, will start rocephin - pending urine culture FEN - low sodium diet - replete potassium Code Status: Full Code Dispo: Tele Observation Visit type - Emergency Visit Emergency Visit: Yes ED Registration Date: 06/17/18 Care time: The patient presented to the Emergency Department on the above date and was hospitalized for further evaluation of their emergent condition. - New Patient This patient is new to me today: No - Critical Care Critical Care patient: No - Discharge Referral Referred to [facility] Med P.C.: No
--- NOTE | 2018-06-15 10:38 | EKG ---
Test Reason : Blood Pressure : / mmHG Vent. Rate : 058 BPM Atrial Rate : 058 BPM P-R Int : 170 ms QRS Dur : 116 ms QT Int : 452 ms P-R-T Axes : 053 -66 021 degrees QTc Int : 443 ms SINUS BRADYCARDIA LEFT AXIS DEVIATION INCOMPLETE RIGHT BUNDLE BRANCH BLOCK ABNORMAL ECG WHEN COMPARED WITH ECG OF 20-FEB-2017 10:23, NO SIGNIFICANT CHANGE WAS FOUND Confirmed by GARY KLEIN MD ([id number]) on 06/15/2018 10:38:15 AM Referred By: DR GAMBLE Confirmed By:GARY KLEIN MD
[2018-06-15] MEDS ORDERED: POTASSIUM CHLORIDE TABS 20 MEQ TABLET.ER (FP) PO ONE (12:38)
[2018-06-15] MEDS: CEFTRIAXONE 1 GM/50 ML BAG IVPB SCH (13:35)
--- NOTE | 2018-06-15 13:39 | CON.CARD ---
Consult Consult Specialty:: Cardiology Referred by:: Rj Reason for Consultation:: afib, splenic infarct - History of Present Illness Chief Complaint: abd pain History of Present Illness: 58M h/o HTN, HLD, afib dx 2015 (not on AC), smoking, SBO, hernia repair 2 weeks ago with LLQ pain, splenic infarct on imaging. Also episode of nausea/ vomiting. no chest pain, palps, dizzy, lightheadedness. CT A/P showed acute infarct of 30% of spleen. Dx with Afib in 2015, never on AC. Of note had stress test 04/2018 showing mod sized inferior infarct with mild linda-infarct ischemia which was done as preop for hernia surgery. - Past Medical History Cardio/Vascular: Yes: AFIB - Alcohol/Substance Use Hx Alcohol Use: No - Smoking History Smoking history: Current every day smoker Have you smoked in the past 12 months: Yes Aproximately how many cigarettes per day: 15 Home Medications - Allergies Allergies/Adverse Reactions: Allergies Allergy/AdvReac Type Severity Reaction Status Date / Time No Known Allergies Allergy Verified 06/14/18 17:38 - Home Medications Home Medications: Ambulatory Orders Cholecalciferol (Vitamin D3) [Vitamin D3] 5,000 unit PO HS 03/20/17 Omeprazole 20 mg PO HS 03/20/17 Solifenacin Succinate [Vesicare -] 5 mg PO HS 03/20/17 Aspirin [Ecotrin] 81 mg PO HS 05/21/18 Metoprolol Succinate 25 mg PO HS 05/21/18 Atorvastatin Calcium 20 mg PO HS 05/30/18 L.acidoph,Paracasei, B.lactis [Probiotic] 1 each PO TID 05/30/18 Mesalamine 1.2 gm PO HS 05/30/18 Diltiazem Cd [Cardizem Cd -] 120 mg PO HS cap.cd.24h 05/31/18 Ezetimibe [Zetia -] 10 mg PO HS tablet 05/31/18 Gabapentin [Neurontin -] 600 mg PO TID capsule 05/31/18 Losartan Potassium [Cozaar -] 25 mg PO HS tablet 05/31/18 Ibuprofen 800 mg PO ONCE 06/14/18 Vitamin B Complex [B Complex] 1 each PO HS 06/14/18 Family Disease History - Family Disease History Family History: Unremarkable Review of Systems - Review of Systems Constitutional: reports: No Symptoms Eyes: reports: No Symptoms HENT: reports: No Symptoms Neck: reports: No Symptoms Cardiovascular: reports: No Symptoms Respiratory: reports: No Symptoms Gastrointestinal: reports: Abdominal Pain Genitourinary: reports: No Symptoms Musculoskeletal: reports: No Symptoms Integumentary: reports: No Symptoms Neurological: reports: No Symptoms Endocrine: reports: No Symptoms Hematology/Lymphatic: reports: No Symptoms Psychiatric: reports: No Symptoms Vital Signs: Vital Signs Temperature 98.1 F 06/15/18 09:49 Pulse Rate 55 L 06/15/18 09:49 Respiratory Rate 06/15/18 09:49 Blood Pressure 129/63 06/15/18 09:49 O2 Sat by Pulse Oximetry (%) 93 L 06/15/18 08:47 Constitutional: Yes: No Distress, Calm Eyes: Yes: Conjunctiva Clear, EOM Intact HENT: Yes: Atraumatic, Normocephalic Neck: Yes: Supple, Trachea Midline Respiratory: Yes: Regular, CTA Bilaterally Gastrointestinal: Yes: Normal Bowel Sounds, Soft, Tenderness (LLQ, no rebound/ guarding) Renal/: Yes: WNL Cardiovascular: Yes: Regular Rate and Rhythm JVD: No Carotid Bruit: No PMI: Non-Displaced Heart Sounds: Yes: S1, S2 Musculoskeletal: No: Back Pain Extremities: No: Cyanosis Edema: No Peripheral Pulses WNL: Yes Peripheral Pulses: 2+ Left Doralis Pedis, 2+ Right Dorsalis Pedis Integumentary: Yes: WNL Neurological: Yes: Alert, Oriented Psychiatric: Yes: Alert, Oriented - Other Data Labs, Other Data: CBC, BMP 06/15/18 07:36 06/15/18 07:36 Troponin, BNP 06/14/18 17:59 Troponin I < 0.03 Troponin, BNP 06/14/18 17:59 Troponin I < 0.03 Assessment/Plan EKG: sinus ziggy, IRBBB, old inf infarct mibi 04/2018 mod sized inferior infarct with mild linda-infarct ischemia Afib, splenic infarct - [id number] score of 2, would recommend anticoagulation - pt has not had echo, may be done as outpatient - start eliquis 5 mg BID CAD - presumed based on abnormal stress showing old infarct with linda infarct ischemia in setting of multiple CAD risk factors - asymptomatic - start eliquis as above, may stop aspirin - continue statin HTN - stable on diltiazem, losartan HLD - continue statin, zetia
[2018-06-15] MEDS: LACTOBACILLUS ACIDOPHILUS 1 TABLET PO SCH ×2 (14:43→21:28)
[2018-06-15] MEDS: DOCUSATE SODIUM 100 MG CAPSULE (FP) PO SCH ×2 (14:43→21:27)
[2018-06-15] MEDS: NICOTINE 14 MG/24 HOURS TOPICAL PATCH TD SCH (14:43)
[2018-06-15] MEDS: GABAPENTIN 300 MG CAPSULE (FP) PO SCH ×2 (14:44→21:27)
--- NOTE | 2018-06-15 16:37 | ECHO ---
Name: GUTIÉRREZ, LITZY Exam:Adult Echocardiogram Study Date: 06/15/2018 03:23 PM Age: 58 yrs Reason For Study: Afib Height: 70 in Weight: 220 lb BSA: 2.2 m2 MMode/2D Measurements & Calculations IVSd: 1.3 cm LA dimension: 3.1 cm LVIDd: 5.2 cm LVIDs: 2.8 cm LVPWd: 1.5 cm LVPWs: 1.2 cm EDV(Teich): 127.3 ml ESV(Teich): 30.9 ml Doppler Measurements & Calculations MV E max gregory: 103.8 cm/sec Ao V2 max: 151.2 cm/sec MV A max gregory: 39.0 cm/sec Ao max P.2 mmHg MV E/A: 2.7 LV V1 max P.5 mmHg PA V2 max: 95.5 cm/sec LV V1 max: 154.2 cm/sec PA max P.6 mmHg Procedure The study was technically difficult with many images being suboptimal in quality. Left Ventricle Left ventricular systolic function is grossly normal. Ejection Fraction = 50-55%. Regional wall motio n abnormalities cannot be excluded due to limited visualization. Right Ventricle The right ventricle is grossly normal size. The right ventricular systolic function is grossly normal . Atria The left atrium is borderline dilated. Mitral Valve There is trivial mitral valve thickening. There is no mitral valve stenosis. There is mild mitral regurgitation. Tricuspid Valve The tricuspid valve is normal in structure and function. There is mild tricuspid regurgitation. Aortic Valve The aortic valve opens well. No hemodynamically significant valvular aortic stenosis. Mild aortic regurgitation. Pulmonic Valve The pulmonic valve is not well seen, but is grossly normal. There is no pulmonic valvular stenosis. T here is no pulmonic valvular regurgitation. Great Vessels The aortic root is normal size. Interpretation Summary The study was technically difficult with many images being suboptimal in quality. Regional wall motion abnormalities cannot be excluded due to limited visualization. Left ventricular systolic function is grossly normal. Ejection Fraction = 50-55%. The right ventricular systolic function is grossly normal. There is mild mitral regurgitation. There is mild tricuspid regurgitation. Mild aortic regurgitation. The left atrium is borderline dilated. MD Flowers *Ny 06/15/2018 04:36 PM
[2018-06-15] MEDS ORDERED: PT OWN MED DRAWER 7, Y5N ONE (21:15)
[2018-06-15] MEDS: SOLIFENACIN SUCCINATE 5 MG TAB (FP) PO SCH (21:27)
[2018-06-15] MEDS: LOSARTAN POTASSIUM 25 MG TABLET PO SCH (21:27)
[2018-06-15] MEDS: APIXABAN 5 MG TABLET PO SCH (21:27)
[2018-06-15] MEDS: PANTOPRAZOLE 20 MG TABLET (FP) PO SCH (21:27)
[2018-06-15] MEDS: CHOLECALCIFEROL (VITAMIN D3) 1,000 UNIT TABLET (FP) PO SCH (21:27)
[2018-06-15] MEDS: ASPIRIN COATED 81 MG TABLET.EC PO SCH (21:27)
[2018-06-15] MEDS: EZETIMIBE 10 MG TABLET (FP) PO SCH (21:28)
[2018-06-15] MEDS: metoPROLOL SUCCINATE 25 MG TAB.SR.24H (FP) PO SCH (21:28)
[2018-06-15] MEDS: ATORVASTATIN CA 20 MG TABLET (FP) PO SCH (21:28)
[2018-06-15] MEDS: VITAMIN B COMP W-C 1 EA TABLET PO SCH (21:28)
[2018-06-15] MEDS ORDERED: PATIENT'S OWN MEDICATION (NON-FORMULARY) (Mesalamine [Mesalamine] 1.2 GM) PO SCH (22:00)
[2018-06-16] MEDS: LACTOBACILLUS ACIDOPHILUS 1 TABLET PO SCH ×3 (06:17→21:14)
[2018-06-16] MEDS: DOCUSATE SODIUM 100 MG CAPSULE (FP) PO SCH ×3 (06:18→21:13)
[2018-06-16] MEDS: GABAPENTIN 300 MG CAPSULE (FP) PO SCH ×3 (06:18→21:11)
[2018-06-16 08:32] LABS: BASO % 0.5 % (0-2.0); EOS % 0.8 % (0-4.5); HEMATOCRIT 40.5 % (35.4-49); HEMOGLOBIN 13.5 GM/dl (11.7-16.9); LYMPH % 16.2 % (8-40); MCH 31.1 pg (25.7-33.7); MCHC 33.3 g/dl (32.0-35.9); MEAN CELL VOLUME 93.6 fl (80-96); MEAN PLT VOLUME 9.1 fl (7.5-11.1); MONO % 8.6 % (3.8-10.2); NEUT % 73.9 % (42.8-82.8); PLATELET COUNT 311 K/MM3 (134-434); RBC 4.33 M/mm3 (4.00-5.60); RDW 13.4 % (11.9-15.9); WHITE BLOOD COUNT 13.1 K/mm3 (4.0-10.8)
[2018-06-16 08:46] LABS: ALBUMIN 2.8 g/dl (3.5-5.0); ALK PHOS 56 U/L (32-92); ANION GAP 7 MMOL/L (8-16); BILIRUBIN,TOTAL 0.7 mg/dl (0.2-1.0); BLOOD UREA NITROGEN 6 mg/dl (7-18); CALCIUM 8.6 mg/dl (8.4-10.2); CHLORIDE 103 mmol/L (98-107); CHOLESTEROL 104 mg/dl; CO2 26 mmol/L (22-28); CREATININE 0.9 mg/dl (0.6-1.3); GLUCOSE,RANDOM 90 mg/dl (74-106); HDL CHOLESTEROL 26 mg/dl (29-89); LDL CHOLESTEROL (ONLY DFH) 61 mg/dl; MAGNESIUM 1.9 mg/dL (1.8-2.4); PHOSPHOROUS 2.9 mg/dl (2.5-4.6); SGOT/AST 13 U/L (10-42); SGPT/ALT 14 U/L (10-40); SODIUM 136 mmol/L (136-145); TOT PROT 6.3 g/dl (6.4-8.3); TRIGLYCERIDES 84 mg/dl (35-160)
[2018-06-16 09:02] LABS: INR 1.62 (0.82-1.09)
[2018-06-16] MEDS ORDERED: PT OWN MED DRAWER 7, Y5N ONE ×2 (09:33→21:06)
[2018-06-16] MEDS: NICOTINE 14 MG/24 HOURS TOPICAL PATCH TD SCH (09:59)
[2018-06-16] MEDS: APIXABAN 5 MG TABLET PO SCH ×2 (09:59→21:09)
[2018-06-16] MEDS: CEFTRIAXONE 1 GM/50 ML BAG IVPB SCH (09:59)
--- NOTE | 2018-06-16 17:24 | PN ---
Physical Exam: SUBJECTIVE: Patient seen and examined at bedside. Left-sided pain is improved, now 3-4. OBJECTIVE: Vital Signs Period Temp Pulse Resp BP Sys/Berg Pulse Ox Last 24 Hr 97.9 F-100 F 64-74 18-20 115-142/57-68 92-95 GENERAL: The patient is awake, alert, and fully oriented, in no acute distress. LUNGS: Breath sounds equal, clear to auscultation bilaterally HEART: Regular rate and rhythm, S1, S2 ABDOMEN: Soft, nontender, nondistended EXTREMITIES: 2+ pulses, warm, well-perfused, no edema. NEUROLOGICAL: Cranial nerves II through XII grossly intact. Normal speech, gait not observed. PSYCH: Normal mood, normal affect. SKIN: Warm, dry, normal turgor Laboratory Results - last 24 hr 06/16/18 06/16/18 06/16/18 07:00 07:00 07:00 WBC 13.1 H RBC 4.33 Hgb 13.5 Hct 40.5 MCV 93.6 MCH 31.1 MCHC 33.3 RDW 13.4 Plt Count 311 MPV 9.1 Absolute Neuts (auto) 9.7 Neutrophils % 73.9 Lymphocytes % 16.2 Monocytes % 8.6 Eosinophils % 0.8 Basophils % 0.5 PT with INR 18.0 H INR 1.62 H D Sodium 136 Potassium 4.0 Chloride 103 Carbon Dioxide 26 Anion Gap 7 L BUN 6 L Creatinine 0.9 Creat Clearance w eGFR > 60 Random Glucose 90 Calcium 8.6 Phosphorus 2.9 Magnesium 1.9 Total Bilirubin 0.7 AST 13 D ALT 14 D Alkaline Phosphatase 56 D Total Protein 6.3 L Albumin 2.8 L Triglycerides 84 Cholesterol 104 Total LDL Cholesterol 61 HDL Cholesterol 26 L Active Medications Generic Name Dose Route Start Last Admin Trade Name Freq PRN Reason Stop Dose Admin Apixaban 5 mg 06/15/18 22:00 06/16/18 09:59 Eliquis - PO 5 mg BID HITESH Administration Aspirin 81 mg 06/15/18 22:00 06/15/18 21:27 Ecotrin - PO 81 mg HS HITESH Administration Atorvastatin Calcium 20 mg 06/15/18 22:00 06/15/18 21:28 Lipitor - PO 20 mg HS HITESH Administration Cholecalciferol 5,000 unit 06/15/18 22:00 06/15/18 21:27 Vitamin D3 - PO 5,000 unit HS HITESH Administration Diltiazem HCl 120 mg 06/15/18 22:00 06/15/18 21:28 Cardizem Cd - PO 120 mg HS HITESH Administration Docusate Sodium 100 mg 06/15/18 14:00 06/16/18 13:13 Colace - PO 100 mg TID HITESH Administration Ezetimibe 10 mg 06/15/18 22:00 06/15/18 21:28 Zetia - PO 10 mg HS HITESH Administration Gabapentin 600 mg 06/15/18 14:00 06/16/18 13:13 Neurontin - PO 600 mg TID HITESH Administration Ceftriaxone Sodium 1 gm in 50 mls @ 100 mls/hr 06/15/18 13:00 06/16/18 09:59 Rocephin 1gm Ivpb (Pre-Docked) IVPB 100 mls/hr DAILY HITESH Administration Protocol Lactobacillus Acidophilus 1 tab 06/15/18 14:00 06/16/18 13:13 Bacid - PO 1 tab TID HITESH Administration Losartan Potassium 25 mg 06/15/18 22:00 06/15/18 21:27 Cozaar - PO 25 mg HS HITESH Administration Metoprolol Succinate 25 mg 06/15/18 22:00 06/15/18 21:28 Toprol Xl - PO 25 mg HS HITESH Administration Morphine Sulfate 4 mg 06/15/18 00:15 06/16/18 02:13 Morphine Sulfate IVPUSH 4 mg Q6H PRN Administration PAIN LEVEL 7 - 10 Multivit/Ca Carb/B Cmplx/FA/Prenat 1 tablet 06/15/18 22:00 06/15/18 21:28 Nephro-Sandra - PO 1 tablet HS HITESH Administration Nicotine 14 mg 06/15/18 12:30 06/16/18 09:59 Nicoderm Patch - TD Not Given DAILY [facility] Non-Formulary Medication 1.2 gm 06/15/18 22:00 Mesalamine [Mesalamine] PO HS HITESH Pantoprazole Sodium 20 mg 06/15/18 22:00 06/15/18 21:27 Protonix - PO 20 mg HS HITESH Administration Solifenacin 5 mg 06/15/18 22:00 06/15/18 21:27 Vesicare - PO 5 mg HS HITESH Administration ASSESSMENT/PLAN 58 year-old male with a PMH significant for HTN, HLD, CAD, atrial fibrillation since 2013 not on anti-coagulation, s/p left THR (03/2017), s/p ventral/ abdominal hernia repair (05/30/18). Admitted for acute splenic infarct. Paroxysmal atrial fibrillation --first diagnosed in 2013 while patient was incarcerated in [facility]; had a syncopal episode and was told he was in afib; to his knowledge was not put on a blood thinner --second episode of afib in 2015 (still incarcerated) which "landed me in ICU "; again reportedly not put on anticoagulation --in [address] Jimenez, not started on anti-coagulation --ECG 02/20/17 shows sinus rhythm @ 66bpm; ECG 06/14/18 shows sinus rhythm @ 58bpm --seen and evaluated by cardiology, start Eliquis BID --ECG in am --continue telemetry monitoring --if afib not captured during this admission, should get outpatient event monitoring Splenic infarct --in setting of h/o paroxysmal afib and two weeks post-op from hernia repair surgery --CT imaging shows 30% infarcted area --pain is improved --d/c morphine, switch to oxycodone 5mg q6h r/o DVT --US BLE done pending dictation --on Eliquis Coronary artery disease --MIBI 04/2018: moderate sized inferior infarct with mild linda-infarct ischemia --06/15 Echo: EF 50-55%; LV normal; RV normal; LAE; mild MR; mild TR; mild AI --continue ASA, ToprolXL, diltiazem, Zetia, Lipitor Hypertension --BP stable --continue losartan, ToprolXL, diltiazem Hyperlipidemia --continue Zetia, Lipitor FEN Fluids: PO intake adequate Electrolytes: replete as indicated Nutrition: regular diet DVT prophylaxis: on Eliquis Physical therapy Dispo: continues to require inpatient care. Full code. Visit type - Emergency Visit Emergency Visit: Yes ED Registration Date: 06/15/18 Care time: The patient presented to the Emergency Department on the above date and was hospitalized for further evaluation of their emergent condition. - New Patient This patient is new to me today: Yes Date on this admission: 06/16/18 - Critical Care Critical Care patient: No
[2018-06-16] MEDS: EZETIMIBE 10 MG TABLET (FP) PO SCH (21:10)
[2018-06-16] MEDS: CHOLECALCIFEROL (VITAMIN D3) 1,000 UNIT TABLET (FP) PO SCH (21:10)
[2018-06-16] MEDS: PANTOPRAZOLE 20 MG TABLET (FP) PO SCH (21:11)
[2018-06-16] MEDS: ATORVASTATIN CA 20 MG TABLET (FP) PO SCH (21:11)
[2018-06-16] MEDS: metoPROLOL SUCCINATE 25 MG TAB.SR.24H (FP) PO SCH (21:12)
[2018-06-16] MEDS: ASPIRIN COATED 81 MG TABLET.EC PO SCH (21:12)
[2018-06-16] MEDS: LOSARTAN POTASSIUM 25 MG TABLET PO SCH (21:12)
[2018-06-16] MEDS: SOLIFENACIN SUCCINATE 5 MG TAB (FP) PO SCH (21:13)
[2018-06-16] MEDS: VITAMIN B COMP W-C 1 EA TABLET PO SCH (21:14)
[2018-06-16] MEDS ORDERED: oxyCODONE HCL 5 MG TABLET PO PRN (21:44)
[2018-06-17] MEDS: LACTOBACILLUS ACIDOPHILUS 1 TABLET PO SCH (05:44)
[2018-06-17] MEDS: DOCUSATE SODIUM 100 MG CAPSULE (FP) PO SCH (05:44)
[2018-06-17] MEDS: GABAPENTIN 300 MG CAPSULE (FP) PO SCH (05:44)
[2018-06-17 07:09] VITALS: TEMP 98.5
[2018-06-17 08:52] LABS: BASO % 0.5 % (0-2.0); EOS % 1.7 % (0-4.5); HEMATOCRIT 41.8 % (35.4-49); HEMOGLOBIN 14.1 GM/dl (11.7-16.9); LYMPH % 17.3 % (8-40); MCH 31.8 pg (25.7-33.7); MCHC 33.8 g/dl (32.0-35.9); MEAN CELL VOLUME 94.2 fl (80-96); MEAN PLT VOLUME 9.3 fl (7.5-11.1); MONO % 8.6 % (3.8-10.2); NEUT % 71.9 % (42.8-82.8); PLATELET COUNT 326 K/MM3 (134-434); RBC 4.44 M/mm3 (4.00-5.60); RDW 13.2 % (11.9-15.9); WHITE BLOOD COUNT 10.9 K/mm3 (4.0-10.8)
[2018-06-17] MEDS: NICOTINE 14 MG/24 HOURS TOPICAL PATCH TD SCH (09:09)
[2018-06-17] MEDS: CEFTRIAXONE 1 GM/50 ML BAG IVPB SCH (09:09)
[2018-06-17] MEDS: APIXABAN 5 MG TABLET PO SCH (09:09)
[2018-06-17 09:18] LABS: ALBUMIN 2.8 g/dl (3.5-5.0); ALK PHOS 57 U/L (32-92); ANION GAP 12 MMOL/L (8-16); BILIRUBIN,TOTAL 0.7 mg/dl (0.2-1.0); BLOOD UREA NITROGEN 11 mg/dl (7-18); CALCIUM 8.4 mg/dl (8.4-10.2); CHLORIDE 101 mmol/L (98-107); CO2 24 mmol/L (22-28); GLUCOSE,RANDOM 69 mg/dl (74-106); POTASSIUM 4.3 mmol/L (3.5-5.1); SGOT/AST 17 U/L (10-42); SGPT/ALT 17 U/L (10-40); SODIUM 137 mmol/L (136-145); TOT PROT 6.3 g/dl (6.4-8.3)
[2018-06-17 09:43] LABS: INR 1.64 (0.82-1.09); PROTHROMBIN TIME (PATIENT) 18.2 SEC (10.2-13.0)
--- NOTE | 2018-06-17 11:16 | DS ---
Physical Exam: SUBJECTIVE: Patient seen and examined OBJECTIVE: Vital Signs Period Temp Pulse Resp BP Sys/Berg Pulse Ox Last 24 Hr 98.5 F-99.3 F 57-70 17-19 97-125/51-65 92-95 PHYSICAL EXAM GENERAL: The patient is awake, alert, and fully oriented, in no acute distress. HEAD: Normal with no signs of trauma. EYES: PERRL, extraocular movements intact, sclera anicteric, conjunctiva clear. ENT: Ears normal, nares patent, oropharynx clear without exudates, moist mucous membranes. NECK: Trachea midline, full range of motion, supple. LUNGS: Breath sounds equal, clear to auscultation bilaterally, no wheezes, no crackles, no accessory muscle use. HEART: Regular rate and rhythm, S1, S2 without murmur, rub or gallop. ABDOMEN: Soft, nontender, nondistended, normoactive bowel sounds, no guarding, no rebound, no hepatosplenomegaly, no masses. EXTREMITIES: 2+ pulses, warm, well-perfused, no edema. NEUROLOGICAL: Cranial nerves II through XII grossly intact. Normal speech, gait not observed. PSYCH: Normal mood, normal affect. SKIN: Warm, dry, normal turgor, no rashes or lesions noted. LABS Laboratory Results - last 24 hr 06/17/18 06/17/18 06/17/18 07:00 07:00 07:00 WBC 10.9 H RBC 4.44 Hgb 14.1 Hct 41.8 MCV 94.2 MCH 31.8 MCHC 33.8 RDW 13.2 Plt Count 326 MPV 9.3 Absolute Neuts (auto) 7.8 Neutrophils % 71.9 Lymphocytes % 17.3 Monocytes % 8.6 Eosinophils % 1.7 D Basophils % 0.5 PT with INR 18.2 H INR 1.64 H Sodium 137 Potassium 4.3 Chloride 101 Carbon Dioxide 24 Anion Gap 12 BUN 11 Creatinine 1.0 Creat Clearance w eGFR > 60 Random Glucose 69 L D Calcium 8.4 Magnesium 2.0 Total Bilirubin 0.7 AST 17 D ALT 17 D Alkaline Phosphatase 57 Total Protein 6.3 L Albumin 2.8 L HOSPITAL COURSE: Date of Admission:06/15/18 Date of Discharge: 06/17/18 Minutes to complete discharge: 35 Discharge Summary Reason For Visit: INFARCTION OF SPLEEN Current Active Problems A-fib (Acute) HLD (hyperlipidemia) (Acute) HTN (hypertension) (Acute) Splenic infarct (Acute) Condition: Fair - Instructions Referrals: Louis Jimenez MD [Primary Care Provider] - - Home Medications Comprehensive Discharge Medication List: Ambulatory Orders Cholecalciferol (Vitamin D3) [Vitamin D3] 5,000 unit PO HS 03/20/17 Omeprazole 20 mg PO HS 03/20/17 Solifenacin Succinate [Vesicare -] 5 mg PO HS 03/20/17 Aspirin [Ecotrin] 81 mg PO HS 05/21/18 Metoprolol Succinate 25 mg PO HS 05/21/18 Atorvastatin Calcium 20 mg PO HS 05/30/18 L.acidoph,Paracasei, B.lactis [Probiotic] 1 each PO TID 05/30/18 Mesalamine 1.2 gm PO HS 05/30/18 Diltiazem Cd [Cardizem Cd -] 120 mg PO HS cap.cd.24h 05/31/18 Ezetimibe [Zetia -] 10 mg PO HS tablet 05/31/18 Gabapentin [Neurontin -] 600 mg PO TID capsule 05/31/18 Losartan Potassium [Cozaar -] 25 mg PO HS tablet 05/31/18 Ibuprofen 800 mg PO ONCE 06/14/18 Vitamin B Complex [B Complex] 1 each PO HS 06/14/18 This patient is new to me today: No Emergency Visit: Yes ED Registration Date: 06/15/18 Care time: The patient presented to the Emergency Department on the above date and was hospitalized for further evaluation of their emergent condition. Critical Care patient: No - Discharge Referral Referred to [facility] Med P.C.: No
--- NOTE | 2018-06-17 11:32 | EKG ---
Test Reason : Blood Pressure : / mmHG Vent. Rate : 057 BPM Atrial Rate : 057 BPM P-R Int : 198 ms QRS Dur : 086 ms QT Int : 430 ms P-R-T Axes : 047 -48 002 degrees QTc Int : 418 ms SINUS BRADYCARDIA WITH PREMATURE ATRIAL COMPLEXES LEFT AXIS DEVIATION LOW VOLTAGE QRS CANNOT RULE OUT INFERIOR INFARCT , AGE UNDETERMINED ABNORMAL ECG Confirmed by GARY KLEIN MD ([id number]) on 06/17/2018 11:32:42 AM Referred By: BETH Confirmed By:GARY KLEIN MD
[2018-06-17 12:01] VITALS: BP 115/53; PULSE 62
== END 2018-06-17 12:25 | disposition home or self-care (01) | DRG 816 ==
LOC: FER 17:20 → UNDOADMOB 23:51 → FM/S 23:51 → INTOOBSV 23:51 → UNDOADMIN 23:55 → FM/S 23:55 → OBSVTOIN 06-17 11:28
PROVIDERS: ADMIT Internal Medicine; ATTEND Nurse Practitioner Acute Care
DX: D73.5 Infarction of spleen (principal); I10 Essential (primary) hypertension; E78.5 Hyperlipidemia, unspecified; I48.0 Paroxysmal atrial fibrillation; I25.10 Atherosclerotic heart disease of native coronary artery without angina pectoris; F17.210 Nicotine dependence, cigarettes, uncomplicated
CPT/HCPCS: 36415; 71046-TC-FY; 74177-TC; 80048; 80053; 80061; 81003; 81015; 83605; 83615; 83690; 83735; 84100; 84484; 85025; 85610; 87086; 93005; 93306-TC; 93970-TC; 99283-25; G0378; J7030

== ENCOUNTER 2020-03-05 15:45 | Emergency (ER) | payer BC ==
--- NOTE | 2020-03-05 16:02 | PDOC ---
History of Present Illness <Daisy Domingo - Last Filed: 03/05/20 20:14> - General History Source: Patient Exam Limitations: No Limitations - History of Present Illness Initial Comments: 03/05/20 16:01 HPI 59 year-old male with a PMH significant for HTN, HLD, CAD, atrial fibrillation since 2013 not on anti-coagulation, s/p left THR (03/2017), s/p ventral/abdominal hernia repair (05/30/18), splenic infarction, presenting with RLQ pain x 2-3 days, associated with diarrhea and one episode of NBNB emesis last night. He has been having nonbloody, watery brown diarrhea, x 4-5 episodes today. he states his abdominal pain is primarily localized to the RLQ, does radiate to the lower back when he moves. He describes the pain as 3/10, more like "numbing" sensation, associated with dysuria. He states this morning he woke up with heartburn and burning sensation in his throat and chest. he also had episode of heartburn in his chest last night a/w tightness. Today he went to urgent care, sent to the ED for further evaluation of his abdominal pain and distension Denies fever, chills, chest pain, SOB, palpitation, dizziness, hematuria, urgency, frequency, bladder and bowel problems, focal weakness/paresthesias, leg swelling/pain, rash. No sick contacts or travel. No new changes in medications. No suspicious food intake Allergies: None Past Medical History: HTN, HLD, CAD, atrial fibrillation since 2013 not on anti- coagulation, s/p left THR (03/2017), s/p ventral/abdominal hernia repair (05/30/18), splenic infarction PSH: s/p left THR (03/2017), s/p ventral/abdominal hernia repair (05/30/18) Social history: No tobacco, ETOH or drug use. Meds: as documented in EMR Family history: noncontributory PMD: Dr Jimenez Review of systems Constitutional: no fevers or chills. +general weakness HEENT: no headache or dizziness. No congestion. No visual/hearing disturbances. CVS: no cp or syncope. Resp: no sob. No cough. Gastrointestinal: +abdominal pain, nausea, vomiting, diarrhea. no bloody stools. Genitourinary: no urgency or frequency, hematuria. +dysuria MUSCULOSKELETAL: No joint pain and swelling. No neck or back pain. SKIN: no redness or skin changes, no discharge, no rash. No wounds. Hematologic: no easy bruising/bleeding. NEUROLOGIC: No headache, dizziness, LOC or altered mental status. No weakness, numbness or tingling. Psych: no anxiety or depression Allergic/Immunologic: no allergies All other systems reviewed and negative, or as documented in HPI. Physical exam General: Well appearing, awake and alert, NAD. HEENT: NCAT, PERRL, EOMI, clear conjunctiva, anicteric, moist mucus membranes, clear oropharynx, no oral lesions.. Neck: neck supple, FROM Resp: CTAB, normal and even respirations, no respiratory distress CVS: RRR, no murmurs, 2+ peripheral pulses throughout, no peripheral edema Abdomen: soft, protuberant. +RLQ tenderness, no rebound or guarding. no CVAT. anterior vertical hernia scar, healed : normal external genitalia, no palp hernia with valsalva, no scrotal or testicular tenderness, normal lie. Back: nontender, normal inspection and ROM MSK: no edema, BAEZ x4, ROM intact. No clubbing or cyanosis. normal bulk and tone. Extremities: no calf tenderness Neuro: alert, oriented appropriately; no focal neurologic deficits Psych: Calm and cooperative Skin: warm and well perfused, cap refill <2 sec, normal color, no rash or skin discoloration. 03/05/20 17:05 03/05/20 17:12 03/05/20 19:01 <Roma Lance - Last Filed: 03/06/20 13:59> - General Chief Complaint: Pain Stated Complaint: ABDOMINAL PAIN 3 DAYS Time Seen by Provider: 03/05/20 15:58 Past History <Daisy Domingo - Last Filed: 03/05/20 20:14> - Medical History Anemia: No Asthma: No Cancer: No Cardiac Disorders: Yes (A-fib 1949-CKZR-DB EXPLORATORY LAP/SILENT HI AFTER ) CVA: No COPD: No CHF: No Dementia: No Diabetes: No GI Disorders: Yes (IBS) Disorders: Yes (BPH WITH URGENCY) HTN: Yes Hypercholesterolemia: Yes Liver Disease: No Seizures: No Thyroid Disease: No - Surgical History Abdominal Surgery: Yes (UMBILICAL HERNIA/ EXPLORATORY LAP 2015 FOR ABDOMINAL PAIN, AF POST OP) Appendectomy: No Cardiac Surgery: No Cholecystectomy: No Lung Surgery: No Neurologic Surgery: No Orthopedic Surgery: Yes (LEFT ELBOW TENDON REPAIR 2013/LEFT THR 03/2017) - Psycho-Social/Smoking History Smoking History: Current every day smoker Have you smoked in the past 12 months: Yes Number of Cigarettes Smoked Daily: 15 'Breaking Loose' booklet given: 06/14/18 <Roma Lance - Last Filed: 03/06/20 13:59> - Medical History Allergies/Adverse Reactions: Allergies Allergy/AdvReac Type Severity Reaction Status Date / Time No Known Allergies Allergy Verified 03/05/20 15:48 Home Medications: Ambulatory Orders Cholecalciferol (Vitamin D3) [Vitamin D3] 10,000 unit PO HS 03/20/17 Omeprazole 20 mg PO HS 03/20/17 Solifenacin Succinate [Vesicare -] 5 mg PO HS 03/20/17 Aspirin [Ecotrin] 81 mg PO HS 05/21/18 Metoprolol Succinate 50 mg PO HS 05/21/18 Atorvastatin Calcium 20 mg PO HS 05/30/18 L.acidoph,Paracasei, B.lactis [Probiotic] 1 each PO TID 05/30/18 Diltiazem Cd [Cardizem Cd -] 120 mg PO HS cap.cd.24h 05/31/18 Ezetimibe [Zetia -] 10 mg PO HS tablet 05/31/18 Gabapentin [Neurontin -] 600 mg PO TID capsule 05/31/18 Losartan Potassium [Cozaar -] 25 mg PO HS tablet 05/31/18 Vitamin B Complex [B Complex] 1 each PO HS 06/14/18 Apixaban [Eliquis -] 5 mg PO BID #60 tablet 06/17/18 *Physical Exam - Vital Signs Last Vital Signs Temp Pulse Resp BP Pulse Ox 98.3 F 77 20 125/73 97 03/05/20 15:47 03/05/20 15:47 03/05/20 15:47 03/05/20 15:47 03/05/20 15:47 <Daisy Domingo - Last Filed: 03/05/20 20:14> Heart Score/ECG Review #1 ECG reviewed & interpreted by me at: 16:50 General ECG Interpretation: Sinus Rhythm, Normal Rate, Normal Intervals Compared to previous ECG there are: No significant change 03/05/20 17:11 EKG sinus rhythm at 59 bpm, no interval abnormalities, narrow QRS, ST and T wave segments and morphology normal. Nonspecific T wave abnormalities <CasiRoma Lancechulasharron - Last Filed: 03/06/20 13:59> ED Treatment Course - LABORATORY CBC & Chemistry Diagram: 03/05/20 16:35 03/05/20 16:35 - ADDITIONAL ORDERS Additional order review: Laboratory Results 03/05/20 03/05/20 03/05/20 16:35 16:35 16:27 PT with INR INR PTT (Actin FS) Sodium 138 Potassium 3.7 Chloride 107 Carbon Dioxide 22 Anion Gap 9 BUN 14.0 Creatinine 1.0 Est GFR (CKD-EPI)AfAm 95.06 Est GFR (CKD-EPI)NonAf 82.02 Random Glucose 80 Lactic Acid 0.9 Calcium 8.3 L Total Bilirubin 0.9 AST 24 ALT 28 Alkaline Phosphatase 61 Creatine Kinase 138 Troponin I Total Protein 6.7 Albumin 3.5 Lipase 223 Urine Color Urine Appearance Urine pH Urine Protein Urine Glucose (UA) Urine Ketones Urine Blood Urine Nitrite Urine Bilirubin Urine Urobilinogen Ur Leukocyte Esterase Urine RBC Urine WBC Urine Bacteria 03/05/20 03/05/20 03/05/20 16:27 16:27 16:20 PT with INR 19.4 H INR 1.75 H PTT (Actin FS) 36.8 H Sodium Potassium Chloride Carbon Dioxide Anion Gap BUN Creatinine Est GFR (CKD-EPI)AfAm Est GFR (CKD-EPI)NonAf Random Glucose Lactic Acid Calcium Total Bilirubin AST ALT Alkaline Phosphatase Creatine Kinase Troponin I < 0.03 Total Protein Albumin Lipase Urine Color Yellow Urine Appearance Clear Urine pH 6.0 Urine Protein Negative Urine Glucose (UA) Negative Urine Ketones Trace Urine Blood 1+ H Urine Nitrite Negative Urine Bilirubin Negative Urine Urobilinogen 0.2 Ur Leukocyte Esterase Trace H Urine RBC 10-20 Urine WBC 0-2 Urine Bacteria Few 03/05/20 16:35 RBC 4.74 MCV 93.1 MCHC 34.8 RDW 13.2 MPV 9.1 Neutrophils % 62.1 Lymphocytes % 24.6 D Monocytes % 10.7 H Eosinophils % 0.8 Basophils % 1.8 D <Daisy Domingo - Last Filed: 03/05/20 20:14> - LABORATORY CBC & Chemistry Diagram: 03/05/20 16:35 03/05/20 16:35 <Roma Lance - Last Filed: 03/06/20 13:59> Medical Decision Making - Medical Decision Making 03/05/20 17:11 Vital Signs Temp Pulse Resp BP Pulse Ox 98.3 F 77 20 125/73 97 03/05/20 15:47 03/05/20 15:47 03/05/20 15:47 03/05/20 15:47 03/05/20 15:47 DDx abdominal pain: Renal colic, biliary colic, metabolic/electrolyte derangements. GERD, PUD, esophageal spasm, pancreatitis, hepatitis, constipation, colitis, gastroenteritis, cholecystitis, UTI, pyelonephritis, ileus, SBO, medication side effect, hernia, appendicitis, diverticulitis, mes enteric ischemia. msk strain, mesenteric adenitis, psoas abscess. ACS, arrhythmia, NSTEMI. Abdominal pain NEG: No evidence of pancreatitis, AAA, cholecystitis, choledocholithiasis, cholangitis, mesenteric ischemia, small bowel obstruction, diverticulitis, colitis, appendicitis, or pelvic etiolology, mir denson tear, special diet cook issues such as ovarian torsion, TOA, or ectopic . Abdomen Reassessment: The patient appears comfortable and states that pain is improved. Given medications XXX with clinical improvement. Tolerating oral intake. Vital signs reviewed and are normal. On repeat physical exam, the abdomen is soft and nontender, no suggestive findings for acute abdominal process at this time. All diagnostics tests reviewed and discussed with the patient. declines analgesia IVF, CT a/p basic labs and lytes, lactic, coags, cardiac profile. 03/05/20 17:12 labs and lytes wnl trop is neg lactic is normal UA unremarkable CT a/p pending results s/o to Dr domingo pending read and ultimate dispo/reeval. <Roma Lance - Last Filed: 03/06/20 13:59> Discharge - Discharge Information Problems reviewed: Yes <Daisy Domingo - Last Filed: 03/05/20 20:14> <Roma Lance - Last Filed: 03/06/20 13:59> - Discharge Information Clinical Impression/Diagnosis: Abdominal pain Qualifiers: Abdominal location: right lower quadrant Qualified Code(s): R10.31 - Right lower quadrant pain Condition: Stable Disposition: HOME - Follow up/Referral Referrals: Tl Bower MD [Staff Physician] - Call tomorrow - Patient Discharge Instructions Patient Printed Discharge Instructions: DI for Abdominal Pain-Adult Additional Instructions: Please return to the emergency department immediately should you feel worse in any way or have any of the following symptoms: increasing or different abdominal pain, persistent vomiting, fevers or shaking chills. Please return to the emergency department for a recheck in 8-12 hours if the joana n is persistent or worse so we can re-evaluate you and ensure that you are not developing a problem that would require surgery or hospitalization. Call Dr Bower tomorrow to arrange followup - Post Discharge Activity
[2020-03-05 16:06] VITALS: BP 125/73; PULSE 77; TEMP 98.3; BMI 28.7
[2020-03-05 17:00] LABS: BASO % 1.8 % (0-2.0); EOS % 0.8 % (0-4.5); HEMATOCRIT 44.1 % (35.4-49); HEMOGLOBIN 15.4 GM/dl (11.7-16.9); LYMPH % 24.6 % (8-40); MCH 32.4 pg (25.7-33.7); MCHC 34.8 g/dl (32.0-35.9); MEAN CELL VOLUME 93.1 fl (80-96); MEAN PLT VOLUME 9.1 fl (7.5-11.1); MONO % 10.7 % (3.8-10.2); NEUT % 62.1 % (42.8-82.8); PLATELET COUNT 224 K/MM3 (134-434); RBC 4.74 M/mm3 (4.00-5.60); RDW 13.2 % (11.9-15.9); WHITE BLOOD COUNT 9.9 K/mm3 (4.0-10.8)
[2020-03-05 17:05] LABS: ALBUMIN 3.5 g/dl (3.4-5.0); BILIRUBIN,TOTAL 0.9 mg/dl (0.2-1); CALCIUM 8.3 mg/dl (8.5-10); POTASSIUM 3.7 mmol/L (3.5-5.1); TOT PROT 6.7 g/dl (6.4-8.2)
[2020-03-05 17:12] LABS: ACTIVATED PTT 36.8 SECONDS (25.2-36.5)
[2020-03-05 17:16] LABS: INR 1.75 (0.82-1.09); PROTHROMBIN TIME (PATIENT) 19.4 SEC (10.2-13.0)
--- NOTE | 2020-03-05 20:17 | PDOC ---
*Physical Exam - Vital Signs Last Vital Signs Temp Pulse Resp BP Pulse Ox 98.3 F 77 20 125/73 97 03/05/20 15:47 03/05/20 15:47 03/05/20 15:47 03/05/20 15:47 03/05/20 15:47 ED Treatment Course - LABORATORY CBC & Chemistry Diagram: 03/05/20 16:35 03/05/20 16:35 - ADDITIONAL ORDERS Additional order review: Laboratory Results 03/05/20 03/05/20 03/05/20 16:35 16:35 16:27 PT with INR INR PTT (Actin FS) Sodium 138 Potassium 3.7 Chloride 107 Carbon Dioxide 22 Anion Gap 9 BUN 14.0 Creatinine 1.0 Est GFR (CKD-EPI)AfAm 95.06 Est GFR (CKD-EPI)NonAf 82.02 Random Glucose 80 Lactic Acid 0.9 Calcium 8.3 L Total Bilirubin 0.9 AST 24 ALT 28 Alkaline Phosphatase 61 Creatine Kinase 138 Troponin I Total Protein 6.7 Albumin 3.5 Lipase 223 Urine Color Urine Appearance Urine pH Urine Protein Urine Glucose (UA) Urine Ketones Urine Blood Urine Nitrite Urine Bilirubin Urine Urobilinogen Ur Leukocyte Esterase Urine RBC Urine WBC Urine Bacteria 03/05/20 03/05/20 03/05/20 16:27 16:27 16:20 PT with INR 19.4 H INR 1.75 H PTT (Actin FS) 36.8 H Sodium Potassium Chloride Carbon Dioxide Anion Gap BUN Creatinine Est GFR (CKD-EPI)AfAm Est GFR (CKD-EPI)NonAf Random Glucose Lactic Acid Calcium Total Bilirubin AST ALT Alkaline Phosphatase Creatine Kinase Troponin I < 0.03 Total Protein Albumin Lipase Urine Color Yellow Urine Appearance Clear Urine pH 6.0 Urine Protein Negative Urine Glucose (UA) Negative Urine Ketones Trace Urine Blood 1+ H Urine Nitrite Negative Urine Bilirubin Negative Urine Urobilinogen 0.2 Ur Leukocyte Esterase Trace H Urine RBC 10-20 Urine WBC 0-2 Urine Bacteria Few 03/05/20 16:35 RBC 4.74 MCV 93.1 MCHC 34.8 RDW 13.2 MPV 9.1 Neutrophils % 62.1 Lymphocytes % 24.6 D Monocytes % 10.7 H Eosinophils % 0.8 Basophils % 1.8 D ED Progress Note - Progress Note Progress Note: Care of this patient received from Dr. Lance Abdominal and pelvis CT with intravenous contrast performed and interpreted by Dr. Chen of the radiology staff: No CT evidence of acute appendicitis seen Colonic diverticulosis seen without evidence of acute diverticulitis. No other acute pathology seen Results discussed with patient and his . Patient states that he has had similar pain and distention in the past but presented because of the severity of the pain over the last 24 hours. He states that he has a certified personal trainer (Dr. Tl Bower) and is due for colon oscopy. He has been advised to call Dr. Bowre in a.m. and arrange for follow-up within the next 5 days. Meanwhile, if he has persistent severe pain or develops vomiting, fever he should return to the ER. Discharge - Discharge Information Problems reviewed: Yes Clinical Impression/Diagnosis: Abdominal pain Qualifiers: Abdominal location: right lower quadrant Qualified Code(s): R10.31 - Right lower quadrant pain Condition: Stable Disposition: HOME - Follow up/Referral Referrals: Tl Bower MD [Staff Physician] - Call tomorrow - Patient Discharge Instructions Patient Printed Discharge Instructions: DI for Abdominal Pain-Adult Additional Instructions: Please return to the emergency department immediately should you feel worse in any way or have any of the following symptoms: increasing or different abdominal pain, persistent vomiting, fevers or shaking chills. Please return to the emergency department for a recheck in 8-12 hours if the pain is persistent or worse so we can re-evaluate you and ensure that you are not developing a problem that would require surgery or hospitalization. Call Dr Bower tomorrow to arrange followup - Post Discharge Activity
--- NOTE | 2020-03-06 11:18 | EKG ---
Test Reason : Blood Pressure : / mmHG Vent. Rate : 059 BPM Atrial Rate : 059 BPM P-R Int : 204 ms QRS Dur : 112 ms QT Int : 424 ms P-R-T Axes : 054 -59 032 degrees QTc Int : 419 ms SINUS BRADYCARDIA LEFT AXIS DEVIATION CANNOT RULE OUT INFERIOR INFARCT , AGE UNDETERMINED INCOMPLETE RIGHT BUNDLE BRANCH BLOCK ABNORMAL ECG WHEN COMPARED WITH ECG OF 17-JUN-2018 07:39, PREMATURE ATRIAL COMPLEXES ARE NO LONGER PRESENT Confirmed by GARY KLEIN MD ([id number]) on 03/06/2020 11:18:43 AM Referred By: DR CONWAY Confirmed By:GARY KLEIN MD
== END 2020-03-05 20:23 | disposition home or self-care (01) ==
LOC: FER 15:45
DX: R10.31 Right lower quadrant pain (principal)
CPT/HCPCS: 36415; 74177-TC; 80053; 81003; 81015; 82550; 83605; 83690; 84484; 85025; 85610; 85730; 87086; 93005; 99285-25; Q9967

== ENCOUNTER 2022-05-30 16:19 | Emergency (ER) | payer BC ==
[2022-05-30 16:44] VITALS: BP 124/80; PULSE 73; RESP 19; TEMP 99.9; BMI 30.4
[2022-05-30 19:02] LABS: ALBUMIN 3.3 g/dl (3.4-5.0); BILIRUBIN,TOTAL 0.6 mg/dl (0.2-1); CALCIUM 8.7 mg/dl (8.5-10); TOT PROT 6.5 g/dl (6.4-8.2)
[2022-05-30 19:09] LABS: HEMATOCRIT 46.1 % (35.4-49); HEMOGLOBIN 16.7 G/dL (11.7-16.9); MCHC 36.1 g/dl (32.0-35.9); MEAN CELL VOLUME 96.9 fl (80-96); MEAN PLT VOLUME 8.8 fl (7.5-11.1); PLATELET COUNT 214.1 10^3/uL (134-434); RBC 4.76 10^6/uL (4.00-5.60); RDW 13.8 % (11.9-15.9); WHITE BLOOD COUNT 9.6 10^3/uL (4.0-10.8)
[2022-05-30] MEDS ORDERED: SULFAMETHOXAZOLE/TRIMETHOPRIM 800MG/160MG D.S. TABLET PO ONE (19:31)
[2022-05-30] MEDS ORDERED: SULFAMETHOXAZOLE/TRIMETHOPRIM 800MG/160MG D.S. TABLET ONE (19:33)
[2022-05-30 19:51] LABS: PLATELET ESTIMATE ADEQUATE
== END 2022-05-30 20:20 | disposition home or self-care (01) ==
LOC: FER 16:19
PROC: 0H9AXZZ Drainage of Inguinal Skin, External Approach (ICD-10-PCS; principal; 2022-05-30)
DX: L02.214 Cutaneous abscess of groin (principal)
CPT/HCPCS: 36415; 76856-TC; 76870-TC; 80053; 81003; 81015; 85027; 99285-25